=== PATIENT | male | born 1960 | race Two or more races ===

== ENCOUNTER 2018-09-16 19:43 | Observation (INO) | payer BC ==
--- NOTE | 2018-09-16 19:57 | PDOC ---
Rapid Medical Evaluation Time Seen by Provider: 09/16/18 19:54 Medical Evaluation: Allergies Allergy/AdvReac Type Severity Reaction Status Date / Time naproxen sodium [From Aleve] Allergy Intermediate Itching Verified 01/23/15 06: 54 09/16/18 19:54 I have performed a brief in-person evaluation of this patient. The patient presents with a chief complaint of:Sent by PCP Dr Talon Jerez for abnormal EKG, +LOC, polina in scalp, s/p fall yesterday seen and discharged from [facility] Pertinent physical exam findings:NAD I have ordered the following:Cardiac work up The patient will proceed to the ED for further evaluation. Discharge Disposition - Diagnosis Abnormal EKG - Referrals - Patient Instructions - Post Discharge Activity
[2018-09-16 20:00] VITALS: BMI 31.2
[2018-09-16 20:19] LABS: BASO % 0.8 % (0-2.0); EOS % 2.2 % (0-4.5); HEMATOCRIT 42.4 % (35.4-49); HEMOGLOBIN 14.4 GM/dL (11.7-16.9); LYMPH % 38.4 % (8-40); MCH 26.3 pg (25.7-33.7); MCHC 33.9 g/dl (32.0-35.9); MEAN CELL VOLUME 77.7 fl (80-96); MEAN PLT VOLUME 8.7 fl (7.5-11.1); NEUT % 52.6 % (42.8-82.8); PLATELET COUNT 223 K/MM3 (134-434); RBC 5.46 M/mm3 (4.00-5.60); RDW 13.7 % (11.9-15.9); WHITE BLOOD COUNT 11.4 K/mm3 (4.0-10.0)
[2018-09-16 20:32] LABS: INR 1.02 (0.83-1.09)
[2018-09-16 20:54] LABS: ALBUMIN 3.9 g/dl (3.4-5.0); ALK PHOS 77 U/L (45-117); ANION GAP 9 MMOL/L (8-16); BILIRUBIN,TOTAL 0.3 mg/dL (0.2-1); BLOOD UREA NITROGEN 22 mg/dL (7-18); CALCIUM 8.7 mg/dL (8.5-10.1); CHLORIDE 107 mmol/L (98-107); CO2 24 mmol/L (21-32); CREATININE 1.3 mg/dL (0.55-1.3); GLUCOSE,RANDOM 157 mg/dL (74-106); MAGNESIUM 1.7 mg/dL (1.8-2.4); POTASSIUM 4.3 mmol/L (3.5-5.1); SGOT/AST 19 U/L (15-37); SGPT/ALT 37 U/L (13-61); SODIUM 140 mmol/L (136-145); TOT PROT 7.4 g/dl (6.4-8.2)
--- NOTE | 2018-09-16 21:21 | PDOC ---
History of Present Illness <Haley Dunn - Last Filed: 09/16/18 21:51> - General History Source: Patient Exam Limitations: No Limitations - History of Present Illness Initial Comments: 09/16/18 22:33 The patient is a 57 year old male, with a significant PMH of DM, gout, BPH, who was sent to the emergency department by his PCP for an abnormal EKG. The patient states they fell yesterday on ice while at work, LOC, and acquired a lesion to the back of his head. He states he went to [facility] ER after the incident and received polina to the back of his head, labs and a CT. Since then, the patient reports feeling nauseous, an episode of vomiting, dizziness, and that he was not able to sleep last night. Patient went to see his PCP today, where he was then advised to come to the ED. Allergies: Naproxen Social history: None reported PCP: Nhan <Yolanda Perry - Last Filed: 09/16/18 22:34> - General Chief Complaint: Lightheaded Stated Complaint: SENT BY PCP Time Seen by Provider: 09/16/18 19:54 Past History - Past Medical History Anemia: No Asthma: No Cancer: No Cardiac Disorders: No CVA: No COPD: No CHF: No Dementia: No Diabetes: Yes GI Disorders: No Disorders: Yes (BPH) HTN: Yes Hypercholesterolemia: Yes Liver Disease: No Seizures: No Thyroid Disease: No Other medical history: Gout - Surgical History Abdominal Surgery: Yes (HERNIA) Appendectomy: No Cardiac Surgery: No Cholecystectomy: No Lung Surgery: No Neurologic Surgery: No Orthopedic Surgery: No - Suicide/Smoking/Psychosocial Hx Smoking History: Never smoked Have you smoked in the past 12 months: No Information on smoking cessation initiated: No Hx Alcohol Use: No Drug/Substance Use Hx: No Substance Use Type: None <Haley Dunn - Last Filed: 09/16/18 21:51> <Yolanda Perry - Last Filed: 09/16/18 22:34> - Past Medical History Allergies/Adverse Reactions: Allergies Allergy/AdvReac Type Severity Reaction Status Date / Time naproxen sodium [From Aleve] Allergy Intermediate Itching Verified 09/16/18 19: 58 Home Medications: Ambulatory Orders Linagliptin/Metformin HCl [Jentadueto 2.5 mg-500 mg Tab] 1 each PO BID 01/16/15 Simvastatin 10 mg PO HS 01/16/15 Enalapril Maleate [Vasotec -] 5 mg PO DAILY tablet 01/17/15 Tamsulosin HCl [Flomax -] 0.4 mg PO HS cap.er.24h 01/17/15 *Physical Exam - Vital Signs Last Vital Signs Temp Pulse Resp BP Pulse Ox 97.3 F L 75 18 150/80 98 09/16/18 19:58 09/16/18 19:58 09/16/18 19:58 09/16/18 19:58 09/16/18 19:58 <Haley Dunn - Last Filed: 09/16/18 21:51> - Vital Signs Last Vital Signs Temp Pulse Resp BP Pulse Ox 97.3 F L 75 18 150/80 98 09/16/18 19:58 09/16/18 19:58 09/16/18 19:58 09/16/18 19:58 09/16/18 19:58 - Physical Exam Comments: 09/16/18 22:34 GENERAL: Awake, alert, and fully oriented, in no acute distress HEAD: No signs of trauma EYES: PERRLA, EOMI, sclera anicteric, conjunctiva clear ENT: Auricles normal inspection, hearing grossly normal, nares patent, oropharynx clear without exudates. Moist mucosa NECK: Normal ROM, supple, no lymphadenopathy, JVD, or masses LUNGS: Breath sounds equal, clear to auscultation bilaterally. No wheezes, and no crackles HEART: Regular rate and rhythm, normal S1 and S2, no murmurs, rubs or gallops ABDOMEN: Soft, nontender, normoactive bowel sounds. No guarding, no rebound. No masses EXTREMITIES: Normal range of motion, no edema. No clubbing or cyanosis. No cords, erythema, or tenderness NEUROLOGICAL: Cranial nerves II through XII grossly intact. Normal speech, normal gait SKIN: Warm, Dry, normal turgor, no rashes or lesions noted. <Yolanda Perry - Last Filed: 09/16/18 22:34> Moderate Sedation - Procedure Monitoring Vital Signs: Procedure Monitoring Vital Signs Temperature 97.3 F L 09/16/18 19:58 Pulse Rate 75 09/16/18 19:58 Respiratory Rate 18 02/13/19 19:58 Blood Pressure 150/80 09/16/18 19:58 O2 Sat by Pulse Oximetry (%) 98 09/16/18 19:58 <Haley Dunn - Last Filed: 09/16/18 21:51> - Procedure Monitoring Vital Signs: Procedure Monitoring Vital Signs Temperature 97.3 F L 09/16/18 19:58 Pulse Rate 75 09/16/18 19:58 Respiratory Rate 18 09/16/18 19:58 Blood Pressure 150/80 09/16/18 19:58 O2 Sat by Pulse Oximetry (%) 98 09/16/18 19:58 <Yolanda Perry - Last Filed: 09/16/18 22:34> Heart Score/ECG Review - ECG Intrepretation Comment:: 09/16/18 21:27 sinus at 76, L axis, q waves inferior that are age indeterminate, t wave inversions V5-6, unchanged from 2014 ekg <Haley Dunn - Last Filed: 09/16/18 21:51> ED Treatment Course - LABORATORY CBC & Chemistry Diagram: 09/16/18 20:10 09/16/18 20:10 - ADDITIONAL ORDERS Additional order review: Laboratory Results 09/16/18 09/16/18 20:10 20:08 PT with INR 12.00 INR 1.02 Sodium 140 Potassium 4.3 Chloride 107 Carbon Dioxide 24 Anion Gap 9 BUN 22 H Creatinine 1.3 Creat Clearance w eGFR 56.90 Random Glucose 157 H Calcium 8.7 Magnesium 1.7 L Total Bilirubin 0.3 AST 19 ALT 37 Alkaline Phosphatase 77 Creatine Kinase 202 Troponin I < 0.02 Total Protein 7.4 Albumin 3.9 09/16/18 20:10 RBC 5.46 MCV 77.7 L MCHC 33.9 RDW 13.7 MPV 8.7 Neutrophils % 52.6 Lymphocytes % 38.4 Monocytes % 6.0 Eosinophils % 2.2 Basophils % 0.8 <Haley Dunn - Last Filed: 09/16/18 21:51> - LABORATORY CBC & Chemistry Diagram: 09/16/18 20:10 09/16/18 20:10 - ADDITIONAL ORDERS Additional order review: Laboratory Results 09/16/18 09/16/18 20:10 20:08 PT with INR 12.00 INR 1.02 Sodium 140 Potassium 4.3 Chloride 107 Carbon Dioxide 24 Anion Gap 9 BUN 22 H Creatinine 1.3 Creat Clearance w eGFR 56.90 Random Glucose 157 H Calcium 8.7 Magnesium 1.7 L Total Bilirubin 0.3 AST 19 ALT 37 Alkaline Phosphatase 77 Creatine Kinase 202 Creatine Kinase Index 1.0 CK-MB (CK-2) 2.1 Troponin I < 0.02 Total Protein 7.4 Albumin 3.9 09/16/18 20:10 RBC 5.46 MCV 77.7 L MCHC 33.9 RDW 13.7 MPV 8.7 Neutrophils % 52.6 Lymphocytes % 38.4 Monocytes % 6.0 Eosinophils % 2.2 Basophils % 0.8 <Yolanda Perry - Last Filed: 09/16/18 22:34> Medical Decision Making - Medical Decision Making 09/16/18 21:21 a/p: 57yo male with hx of DM and a mechanical fall yesterday/closed head injury- polina yesterday at [facility] -head ct and c spine ct negative from yesterday - pt with reports -lightheaded and abnl ekg per Dr. 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 aldridge <Haley Dunn - Last Filed: 09/16/18 21:51> - Medical Decision Making 09/16/18 21:43 CT head w/o contrast taken at [facility] Read by Dr Barnett Impression: no acute intracranial hemorrhage, estra axial collection or infarct. CT cervical spine w/o contrast taken at [facility] Read by Dr. Hardwick Impression: No fracture or dislocation. Degenerative disc disease. <Yolanda Perry - Last Filed: 09/16/18 22:34> *DC/Admit/Observation/Transfer - Discharge Dispostion Decision to Admit order: Yes - Attestations Physician Attestion: 09/16/18 21:52 I, Dr. Haley Dunn, DO, attest that this document has been prepared under my direction and personally reviewed by me in its entirety. I further attest, that it accurately reflects all work, treatment, procedures and medical decision -making performed by me. <Haley Dunn - Last Filed: 09/16/18 21:51> - Attestations Scribe Attestion: 09/16/18 21:45 Documentation prepared by Yolanda Perry, acting as medical assistant for Haley Dunn DO. <Yolanda Perry - Last Filed: 09/16/18 22:34> Diagnosis at time of Disposition: Abnormal EKG, Lightheaded - Discharge Dispostion Condition at time of disposition: Fair
--- NOTE | 2018-09-17 01:48 | HP ---
CHIEF COMPLAINT: sent from PCP office for abnormal EKG PCP:Dr. Patrick HISTORY OF PRESENT ILLNESS: This is a 57 year old male with history of diabetes mellitus(on med), gout,and BPH who sustained a slip on ice yesterday. He went to [facility] for evaluation. CT scan of head was unremarkable. He required for 4 polina to his head. He went to his PCP today and found to have an abnormal EKG(office EKG unavailable) . He was referred to go to the ER. He denied any active anginal symptoms and reports feeling at his baseline. He denied shortness of breath, orthopnea, dizziness, palpitations, headache or syncopy.He was admitted to observation for further cardiac evaluation. EKG reviewed a normal sinus rhythm, T wave inversions in v5,v6, first troponin is normal. Recent Travel: Yes, [place] in June 2018 PAST MEDICAL HISTORY:diabetes mellitus,gout, BPH PAST SURGICAL HISTORY:denies Social History: Smoking:smoked for 10 years, 1-2 cigarettes a day Alcohol:denies Drugs: denies Family History:denies cardiac family history Allergies naproxen sodium [From Aleve] Allergy (Intermediate, Verified 09/16/18 19:58) Itching HOME MEDICATIONS: Home Medications Medication Instructions Recorded Linagliptin/Metformin HCl 1 each PO BID 01/16/15 [Jentadueto 2.5 mg-500 mg Tab] Simvastatin 10 mg PO HS 01/16/15 Enalapril Maleate [Vasotec -] 5 mg PO DAILY tablet 01/17/15 Tamsulosin HCl [Flomax -] 0.4 mg PO HS cap.er.24h 01/17/15 REVIEW OF SYSTEMS CONSTITUTIONAL: Absent: fever, chills, diaphoresis, generalized weakness, malaise, loss of appetite, weight change HEENT: Absent: rhinorrhea, nasal congestion, throat pain, throat swelling, difficulty swallowing, mouth swelling, ear pain, eye pain, visual changes CARDIOVASCULAR: Absent: chest pain, syncope, palpitations, irregular heart rate, lightheadedness , peripheral edema RESPIRATORY: Absent: cough, shortness of breath, dyspnea with exertion, orthopnea, wheezing, stridor, hemoptysis GASTROINTESTINAL: Absent: abdominal pain, abdominal distension, nausea, vomiting, diarrhea, constipation, melena, hematochezia GENITOURINARY: Absent: dysuria, frequency, urgency, hesitancy, hematuria, flank pain, genital pain MUSCULOSKELETAL: Absent: myalgia, arthralgia, joint swelling, back pain, neck pain SKIN: Absent: rash, itching, pallor HEMATOLOGIC/IMMUNOLOGIC: Absent: easy bleeding, easy bruising, lymphadenopathy, frequent infections ENDOCRINE: Absent: unexplained weight gain, unexplained weight loss, heat intolerance, cold intolerance NEUROLOGIC: Absent: headache, focal weakness or paresthesias, dizziness, unsteady gait, seizure, mental status changes, bladder or bowel incontinence PSYCHIATRIC: Absent: anxiety, depression, suicidal or homicidal ideation, hallucinations. PHYSICAL EXAMINATION Vital Signs - 24 hr 09/16/18 19:58 Temperature 97.3 F L Pulse Rate 75 Respiratory 18 Rate Blood Pressure 150/80 O2 Sat by Pulse 98 Oximetry (%) GENERAL: Awake, alert, and fully oriented, in no acute distress. HEAD: Normal with no signs of trauma. EYES: Pupils equal, round and reactive to light EARS, NOSE, THROAT: Ears normal, nares patent, oropharynx clear without exudates. Moist mucous membranes. NECK: Normal range of motion, supple no JVD LUNGS: Breath sounds equal, clear to auscultation bilaterally. No wheezes, and no crackles. No accessory muscle use HEART: Regular rate and rhythm, normal S1 and S2 without murmur ABDOMEN: Soft, nontender, not distended, normoactive bowel sounds, no guarding, no rebound, no masses. MUSCULOSKELETAL: Normal range of motion at all joints. No bony deformities or tenderness. UPPER EXTREMITIES: 2+ pulses, warm, well-perfused. No cyanosis. No clubbing. No peripheral edema. LOWER EXTREMITIES: 2+ pulses, warm, well-perfused. No calf tenderness. No peripheral edema. NEUROLOGICAL: Cranial nerves II-XII intact. Normal speech. Normal gait. PSYCHIATRIC: Cooperative. Good eye contact. Appropriate mood and affect. SKIN: Warm, dry, normal turgor, no rashes or lesions noted, normal capillary refill. Laboratory Results - last 24 hr 09/16/18 09/16/18 09/16/18 20:08 20:10 20:10 WBC 11.4 H RBC 5.46 Hgb 14.4 Hct 42.4 MCV 77.7 L MCH 26.3 MCHC 33.9 RDW 13.7 Plt Count 223 MPV 8.7 Absolute Neuts (auto) 6.0 Neutrophils % 52.6 Lymphocytes % 38.4 Monocytes % 6.0 Eosinophils % 2.2 Basophils % 0.8 Nucleated RBC % 0 PT with INR 12.00 INR 1.02 Sodium 140 Potassium 4.3 Chloride 107 Carbon Dioxide 24 Anion Gap 9 BUN 22 H Creatinine 1.3 Creat Clearance w eGFR 56.90 Random Glucose 157 H Calcium 8.7 Magnesium 1.7 L Total Bilirubin 0.3 AST 19 ALT 37 Alkaline Phosphatase 77 Creatine Kinase 202 Creatine Kinase Index 1.0 CK-MB (CK-2) 2.1 Troponin I < 0.02 Total Protein 7.4 Albumin 3.9 ASSESSMENT/PLAN: 57 year old male with history of diabetes mellitus(on medications), gout,and BPH who sustained a slip on ice yesterday. He was evaluated at [facility] yesterday. CT scan of head was unremarkable. He required for 4 polina to his head. He went to his PCP today and he was found to have an abnormal EKG. He was referred to go to the ER. R/O OR in setting of abnormal EKG He denies any active anginal symptoms. EKG showing a normal sinus rhythm, T wave inversions in v5,v6, first troponin is normal, appears euvolemic, hemodynamiclly stable. Will add baby aspirin, continue statin therapy and adamaris inhibitor. Cardiology consulted- Dr. Amaya. PCP consulted- Dr. Patrick. Diabetes Mellitus Accucheks before meals and at bedtime. Continue metformin. Leukocytosis Patient is afebrile, denies cough or chills, Will check UA. Repeat CBC in am. BPH Continue tamulosin. Visit type - Emergency Visit Emergency Visit: Yes ED Registration Date: 09/16/18 Care time: The patient presented to the Emergency Department on the above date and was hospitalized for further evaluation of their emergent condition. - New Patient This patient is new to me today: Yes Date on this admission: 09/17/18 - Critical Care Critical Care patient: No
[2018-09-17] MEDS ORDERED: sitaGLIPtin PHOSPHATE 50 MG TABLET ONE (06:32)
[2018-09-17] MEDS ORDERED: metFORMIN HCL 500 MG TABLET (FP) ONE (06:32)
[2018-09-17] MEDS: sitaGLIPtin PHOSPHATE 100 MG TABLET (FP) PO SCH (06:48)
[2018-09-17] MEDS ORDERED: metFORMIN HCL 500 MG TABLET (FP) PO SCH (07:00)
[2018-09-17 08:35] LABS: ANION GAP 6 MMOL/L (8-16); BLOOD UREA NITROGEN 24 mg/dL (7-18); CALCIUM 8.6 mg/dL (8.5-10.1); CHLORIDE 107 mmol/L (98-107); CO2 26 mmol/L (21-32); GLUCOSE,RANDOM 121 mg/dL (74-106); POTASSIUM 4.3 mmol/L (3.5-5.1); SODIUM 139 mmol/L (136-145)
[2018-09-17 08:39] LABS: HEMATOCRIT 41.7 % (35.4-49); HEMOGLOBIN 13.8 GM/dL (11.7-16.9); MCH 25.8 pg (25.7-33.7); MEAN CELL VOLUME 78.1 fl (80-96); MEAN PLT VOLUME 8.8 fl (7.5-11.1); PLATELET COUNT 204 K/MM3 (134-434); RBC 5.34 M/mm3 (4.00-5.60); RDW 13.9 % (11.9-15.9); WHITE BLOOD COUNT 11.5 K/mm3 (4.0-10.0)
[2018-09-17] MEDS: ENALAPRIL MALEATE 5 MG TABLET (FP) PO SCH (09:06)
[2018-09-17] MEDS: ASPIRIN 81 MG CHEWABLE TABLETS PO SCH (09:06)
[2018-09-17] MEDS: MAGNESIUM CL 64 MG TABLET.SA PO SCH (09:06)
[2018-09-17] MEDS ORDERED: PATIENT'S OWN MEDICATION (NON-FORMULARY) (Linagliptin/Metformin Hcl [Jentadueto 2.5 Mg-500 PO SCH (10:00)
[2018-09-17 11:36] LABS: MAGNESIUM 1.9 mg/dL (1.8-2.4)
--- NOTE | 2018-09-17 12:29 | PN ---
Progress Note, Physician Chief Complaint: s/p fall on ice three polina back of head complaining of dizziness - Current Medication List Current Medications: Active Medications Aspirin (Asa -) 81 mg PO DAILY [facility] Last Admin: 09/17/18 09:06 Dose: 81 mg Atorvastatin Calcium (Lipitor -) 10 mg PO [facility] Enalapril Maleate (Vasotec -) 5 mg PO DAILY [facility] Last Admin: 09/17/18 09:06 Dose: 5 mg Insulin Aspart (Novolog Vial Sliding Scale -) 1 vial SQ [facility]; Protocol Magnesium Chloride (Slow-Mag -) 64 mg PO DAILY [facility] Last Admin: 09/17/18 09:06 Dose: 64 mg Sitagliptin Phosphate (Januvia -) 100 mg PO DAILY@0700 [facility] Last Admin: 09/17/18 06:48 Dose: 100 mg Tamsulosin HCl (Flomax -) 0.4 mg PO [facility] - Objective Vital Signs: Vital Signs Temperature 98.7 F 09/17/18 08:00 Pulse Rate 69 09/17/18 08:00 Respiratory Rate 18 09/17/18 08:00 Blood Pressure 128/73 09/17/18 08:00 O2 Sat by Pulse Oximetry (%) 98 09/17/18 07:48 Constitutional: Yes: Calm HENT: Yes: Other (polina back of head) Cardiovascular: Yes: Regular Rate and Rhythm, S1, S2 Respiratory: Yes: CTA Bilaterally Gastrointestinal: Yes: Normal Bowel Sounds, Soft Edema: No Neurological: Yes: Alert, Oriented Labs: CBC, BMP 09/17/18 07:15 09/17/18 07:15 INR, PTT INR 1.02 (0.83-1.09) 09/16/18 20:08 Problem List - Problems (1) Abnormal EKG Assessment/Plan: telemetry cardiology echo lipid profile on statin aspirin statin Cardiac enzymes 3 sets negative Code(s): R94.31 - ABNORMAL ELECTROCARDIOGRAM [ECG] [EKG] (2) Fall Assessment/Plan: neurolgoy ct head Code(s): W19.XXXA - UNSPECIFIED FALL, INITIAL ENCOUNTER (3) Diabetes Assessment/Plan: bgn sliding scale [id number] januvia 10mg Code(s): E11.9 - TYPE 2 DIABETES MELLITUS WITHOUT COMPLICATIONS Qualifiers: Diabetes mellitus type: type 2
[2018-09-17] MEDS ORDERED: MECLIZINE HCL 12.5 MG TABLET PO PRN (12:33)
--- NOTE | 2018-09-17 14:55 | ECHO ---
Name: SERA ELDER Exam:Adult Echocardiogram Study Date: 09/17/2018 01:07 PM Age: 57 yrs Reason For Study: EJECTION FRACTION MMode/2D Measurements & Calculations IVSd: 0.91 cm Ao root diam: 3.5 cm LVIDd: 4.7 cm LA dimension: 3.4 cm LVIDs: 2.9 cm ACS: 1.6 cm LVPWd: 0.90 cm IVSs: 1.2 cm LVPWs: 1.2 cm EDV(Teich): 104.0 ml ESV(Teich): 31.7 ml Doppler Measurements & Calculations MV E max cristóbal: 47.9 cm/sec Ao V2 max: 109.6 cm/sec MV A max cristóbal: 72.1 cm/sec Ao max P.8 mmHg MV E/A: 0.66 TR max cristóbal: 180.2 cm/sec PA V2 max: 141.2 cm/sec TR max P.5 mmHg PA max P.0 mmHg PA V2 mean: 94.5 cm/sec PA mean P.1 mmHg PA V2 VTI: 23.3 cm Med Peak E' Cristóbal: 5.4 cm/sec Med E/e': 8.9 Lat Peak E' Cristóbal: 8.1 cm/sec Lat E/e': 5.9 Procedure A complete two-dimensional transthoracic echocardiogram was performed (2D, M-mode, Doppler and color flow Doppler). The study was technically difficult with many images being suboptimal in quality. Left Ventricle The left ventricular size, thickness and function are normal. The left ventricular ejection fraction is normal. Ejection Fraction = 60-65%. No regional wall motion abnormalities noted. Right Ventricle The right ventricle is normal in size and function. Atria Normal left and right atrial size and function. Mitral Valve There is no mitral regurgitation noted. Tricuspid Valve There is trace tricuspid regurgitation. There was insufficient TR detected to calculate RV systolic p ressure. Aortic Valve The aortic valve is trileaflet. No hemodynamically significant valvular aortic stenosis. No aortic regurgitation is present. Pulmonic Valve The pulmonic valve is not well visualized. Great Vessels The aortic root is normal size. Pericardium/Pleura There is no pericardial effusion. Interpretation Summary The study was technically difficult with many images being suboptimal in quality. The left ventricular size, thickness and function are normal The right ventricle is normal in size and function. There is trace tricuspid regurgitation. MD Joey Lopes 09/17/2018 02:54 PM
--- NOTE | 2018-09-17 15:33 | EKG ---
Test Reason : Blood Pressure : / mmHG Vent. Rate : 090 BPM Atrial Rate : 090 BPM P-R Int : 180 ms QRS Dur : 100 ms QT Int : 354 ms P-R-T Axes : 055 -57 170 degrees QTc Int : 433 ms SINUS RHYTHM WITH FREQUENT PREMATURE VENTRICULAR COMPLEXES IN A PATTERN OF BIGEMINY LEFT AXIS DEVIATION INFERIOR INFARCT , AGE UNDETERMINED ABNORMAL ECG WHEN COMPARED WITH ECG OF 16-JAN-2015 12:22, INFERIOR INFARCT IS NOW PRESENT T WAVE INVERSION NOW EVIDENT IN ANTERIOR LEADS Confirmed by PHUONG CHAVES MD ([id number]) on 09/17/2018 3:32:23 PM Referred By: LORAINE DANIELLE Confirmed By:PHUONG CHAVES MD
--- NOTE | 2018-09-17 15:41 | EKG ---
Test Reason : Blood Pressure : / mmHG Vent. Rate : 076 BPM Atrial Rate : 076 BPM P-R Int : 192 ms QRS Dur : 098 ms QT Int : 374 ms P-R-T Axes : 053 -51 078 degrees QTc Int : 420 ms NORMAL SINUS RHYTHM LEFT AXIS DEVIATION INFERIOR INFARCT , AGE UNDETERMINED ABNORMAL ECG WHEN COMPARED WITH ECG OF 16-JAN-2015 12:22, PREMATURE VENTRICULAR COMPLEXES ARE NO LONGER PRESENT INFERIOR INFARCT IS NOW PRESENT Confirmed by ANDIE CARNES, PHUONG ([id number]) on 09/17/2018 3:41:14 PM Referred By: Confirmed By:PHUONG CHAVES MD
--- NOTE | 2018-09-17 16:09 | CON.CARD ---
Consult Consult Specialty:: Cardiology Reason for Consultation:: Abnormal ECG - History of Present Illness History of Present Illness: 57 year old male with history of diabetes mellitus, gout,and BPH who sustained a slip on ice. He went to [facility] for evaluation. CT scan of head was unremarkable. He required for 4 polina to his head. He went to his PCP and had dizziness. There may have been an abnormal ECG but results are not available. He was referred to go to the ER. He denied any active anginal symptoms and reports feeling at his baseline. He denied shortness of breath, orthopnea, dizziness, palpitations, headache or syncopy.He was admitted to observation for further cardiac evaluation. ER EKG reviewed showed ventricular bigemeny with nonspecific T wave changes Echocardiogram showed normal biventricular function without valvular pathology. - History Source Limitations to Obtaining History: No Limitations - Alcohol/Substance Use Hx Alcohol Use: No - Smoking History Smoking history: Never smoked Have you smoked in the past 12 months: No Home Medications - Allergies Allergies/Adverse Reactions: Allergies Allergy/AdvReac Type Severity Reaction Status Date / Time naproxen sodium [From Aleve] Allergy Intermediate Itching Verified 09/16/18 19: 58 - Home Medications Home Medications: Ambulatory Orders Linagliptin/Metformin HCl [Jentadueto 2.5 mg-500 mg Tab] 1 each PO BID 01/16/15 Simvastatin 10 mg PO HS 01/16/15 Enalapril Maleate [Vasotec -] 5 mg PO DAILY tablet 01/17/15 Tamsulosin HCl [Flomax -] 0.4 mg PO HS cap.er.24h 01/17/15 Review of Systems - Review of Systems Constitutional: reports: No Symptoms. denies: Chills, Diaphoresis, Fever, Lethargy Eyes: reports: No Symptoms HENT: reports: No Symptoms. denies: Difficult Swallowing Neck: reports: No Symptoms Cardiovascular: denies: Chest Pain, Edema, Palpitations, Shortness of Breath Respiratory: reports: No Symptoms Musculoskeletal: denies: Back Pain, Joint Swelling, Muscle Pain Neurological: denies: Change in Speech, Confusion, Dizziness, Incoordination Vital Signs: Vital Signs Temperature 98.7 F 09/17/18 08:00 Pulse Rate 69 09/17/18 08:00 Respiratory Rate 18 09/17/18 08:00 Blood Pressure 128/73 09/17/18 08:00 O2 Sat by Pulse Oximetry (%) 98 09/17/18 07:48 Constitutional: Yes: Well Nourished, No Distress Eyes: Yes: Conjunctiva Clear HENT: Yes: Atraumatic, Normocephalic Neck: Yes: Supple, Trachea Midline Respiratory: Yes: Regular, CTA Bilaterally Gastrointestinal: Yes: Normal Bowel Sounds Cardiovascular: Yes: Regular Rate and Rhythm. No: Tachycardia, Pulse Irregular , Gallop, Rub JVD: No Carotid Bruit: No PMI: Non-Displaced Heart Sounds: Yes: S1, S2 Murmur: No: Systolic Murmur, Diastolic Murmur Extremities: Yes: WNL Edema: No - Other Data Labs, Other Data: CBC, BMP 09/17/18 07:15 09/17/18 07:15 INR, PTT INR 1.02 (0.83-1.09) 09/16/18 20:08 Troponin, BNP 09/16/18 09/17/18 09/17/18 20:10 01:50 07:15 Troponin I < 0.02 < 0.02 < 0.02 Troponin, BNP 09/16/18 09/17/18 09/17/18 20:10 01:50 07:15 Troponin I < 0.02 < 0.02 < 0.[address] changes. Nonspecific T wave changes. Problem List - Problems (1) Abnormal EKG Code(s): R94.31 - ABNORMAL ELECTROCARDIOGRAM [ECG] [EKG] Assessment/Plan 57 year old male with history of diabetes mellitus, gout,and BPH who sustained a slip on ice. He went to [facility] for evaluation. CT scan of head was unremarkable. He required for 4 polina to his head. He went to his PCP and had dizziness. There may have been an abnormal ECG but results are not available. He was referred to go to the ER. He denied any active anginal symptoms and reports feeling at his baseline. He denied shortness of breath, orthopnea, dizziness, palpitations, headache or syncopy.He was admitted to observation for further cardiac evaluation. ER EKG reviewed showed ventricular bigemeny with nonspecific T wave changes Echocardiogram showed normal biventricular function without valvular pathology. Nonspecific T wave changes are not ischemic. PT has no symptoms of angina or heart failure. Echocardiogram is normal. Has ventricular bigeminy with normal LV function. No further inpatient testing is advised at this time. Will see as needed.
[2018-09-17] MEDS: INSULIN SLIDING SCALE (NOVOLOG) 1 VIAL SQ SCH ×2 (16:33→22:36)
[2018-09-17 16:40] LABS: URINE APPEARANCE CLEAR; URINE BILIRUBIN NEGATIVE (<2.0 mg/dL); URINE COLOR LTYELLOW; URINE GLUCOSE (UA) NEGATIVE (NEGATIVE); URINE KETONE NEGATIVE (NEGATIVE); URINE LEUK ESTERASE NEGATIVE (NEGATIVE); URINE NITRITE NEGATIVE (NEGATIVE); URINE PROTEIN NEGATIVE (NEGATIVE); URINE UROBILINOGEN NEGATIVE mg/dL (0.2-1.0)
[2018-09-17 16:56] LABS: EPI CELLS RARE /HPF (FEW); URINE MUCUS RARE
[2018-09-17] MEDS ORDERED: ATORVASTATIN CA 10 MG TABLET (FP) PO SCH (22:00)
[2018-09-17] MEDS: TAMSULOSIN HCL 0.4 MG CAP PO SCH (22:36)
[2018-09-18] MEDS ORDERED: ACETAMINOPHEN 325 MG TABLET (FP) ONE (05:49)
[2018-09-18] MEDS: ACETAMINOPHEN 325 MG TABLET (FP) PO PRN (05:54)
[2018-09-18] MEDS: INSULIN SLIDING SCALE (NOVOLOG) 1 VIAL SQ SCH ×4 (06:07→21:21)
[2018-09-18] MEDS: sitaGLIPtin PHOSPHATE 100 MG TABLET (FP) PO SCH (06:08)
[2018-09-18 07:34] LABS: BASO % 0.6 % (0-2.0); EOS % 1.9 % (0-4.5); HEMATOCRIT 41.7 % (35.4-49); HEMOGLOBIN 13.9 GM/dL (11.7-16.9); LYMPH % 32.5 % (8-40); MCHC 33.3 g/dl (32.0-35.9); MEAN CELL VOLUME 78.1 fl (80-96); MEAN PLT VOLUME 8.8 fl (7.5-11.1); PLATELET COUNT 196 K/MM3 (134-434); RBC 5.34 M/mm3 (4.00-5.60); RDW 14.2 % (11.9-15.9); WHITE BLOOD COUNT 10.2 K/mm3 (4.0-10.0)
[2018-09-18 08:07] LABS: ALBUMIN 3.4 g/dl (3.4-5.0); ALK PHOS 74 U/L (45-117); ANION GAP 4 MMOL/L (8-16); BILIRUBIN,TOTAL 0.4 mg/dL (0.2-1); BLOOD UREA NITROGEN 22 mg/dL (7-18); CALCIUM 8.7 mg/dL (8.5-10.1); CHLORIDE 107 mmol/L (98-107); CHOLESTEROL 170 mg/dL (50-200); CO2 27 mmol/L (21-32); GLUCOSE,RANDOM 134 mg/dL (74-106); HDL CHOLESTEROL 37 mg/dL (40-60); POTASSIUM 4.7 mmol/L (3.5-5.1); SGOT/AST 18 U/L (15-37); SGPT/ALT 35 U/L (13-61); SODIUM 138 mmol/L (136-145); TOT PROT 6.8 g/dl (6.4-8.2); TRIGLYCERIDES 150 mg/dL (0-150)
[2018-09-18] MEDS ORDERED: PT OWN MED DRAWER 7, Y5N ONE (09:16)
[2018-09-18] MEDS: ENALAPRIL MALEATE 5 MG TABLET (FP) PO SCH (09:36)
[2018-09-18] MEDS: ASPIRIN 81 MG CHEWABLE TABLETS PO SCH (09:36)
[2018-09-18] MEDS: MAGNESIUM CL 64 MG TABLET.SA PO SCH (09:36)
--- NOTE | 2018-09-18 10:02 | CONSULT ---
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 Events reviewed and discussed with staff. Cardiology Consult read and appreciated. PMHX: HTN, DM, HLD, BPH Medications: linagliptin/metformin, simvastatin, enalapril, tamsulosin Allergy to Naproxen. Pt notes rare headaches since childhood. He reports "slipping on ice" falling backwards on head outside the property without prodromal symptoms and LOC for approximately [address]. Unclear but LOC may have recurred in the [facility] ED where he had CT of head, was observed, and D/C'ed to his family. Since then he has had a "shaking" headache in the back of his head with associated photophobia, phonophobia, nausea, vomiting and kinesiophobia. He also notes the "room spinning" with dizziness induced by mov't. He reports the symptoms have since been ongoing, and he saw his PCP, who recommended return to the hospital. He also reports intermittent new neck and back pain, along with "tingling" pains in both hands and the R leg interupting sleep. Head CT (reviewed): mild atrophic changes A1c 7.2 Ck 202 WBC 11.2 MCV 77.7 ECHO: normal EKG: ventricular bigeminy HOPE: restricted ROM of neck, Staple line over R occipital region, (+/-) Tinel's B/L hands, (-) mehta sign's (-) infraorbital ecchymoses (-) bruits, (-) SLR, NEURO EXAM: Mentation: Oriented to name. [facility]. September 2018. TRUMP CN II-XII: EOMI intact without nystagmus. Motor: No drift. Strength normal including APBs B/L. Reflexes normal. Toes downgoing. Coordination: No FTN dystaxia. Romberg - Sensation: Reduced vibration in feet. Gait: Normal including heels, toes and tandem. Impression: Head Injury with LOC Concussion Plan: Advise bed rest, IVF hydration Obtain B12, TSH, Fe++, Iron, TIBC, Ferritin Advise CT of Neck (C-), Lumbar Xray Neuro F/U as outpatient for further management of concussion and study for possible diabetic neuropathy Thank you very much. Lakhwinder Eden MD
--- NOTE | 2018-09-18 13:16 | PN ---
Progress Note, Physician Chief Complaint: patient complaining of headache at site where he fell has ice pack on went for ct of neck and lumbar xray lipid profile noted - Current Medication List Current Medications: Active Medications Acetaminophen (Tylenol -) 650 mg PO Q6H PRN PRN Reason: PAIN LEVEL 1-5 Last Admin: 09/18/18 05:54 Dose: 650 mg Aspirin (Asa -) 81 mg PO DAILY [facility] Last Admin: 09/18/18 09:36 Dose: 81 mg Enalapril Maleate (Vasotec -) 5 mg PO DAILY [facility] Last Admin: 09/18/18 09:36 Dose: 5 mg Insulin Aspart (Novolog Vial Sliding Scale -) 1 vial SQ ACHS [facility]; Protocol Last Admin: 09/18/18 12:30 Dose: Not Given Magnesium Chloride (Slow-Mag -) 64 mg PO DAILY [facility] Last Admin: 09/18/18 09:36 Dose: 64 mg Meclizine HCl (Antivert -) 12.5 mg PO BID PRN PRN Reason: VERTIGO Sitagliptin Phosphate (Januvia -) 100 mg PO DAILY@0700 [facility] Last Admin: 09/18/18 06:08 Dose: 100 mg Tamsulosin HCl (Flomax -) 0.4 mg PO HS [facility] Last Admin: 09/17/18 22:36 Dose: 0.4 mg - Objective Vital Signs: Vital Signs Temperature 98 F 09/18/18 10:00 Pulse Rate 82 09/18/18 10:00 Respiratory Rate 18 09/18/18 10:00 Blood Pressure 125/64 09/18/18 10:00 O2 Sat by Pulse Oximetry (%) 96 09/18/18 07:00 Constitutional: Yes: Calm HENT: Yes: Other (head polina) Cardiovascular: Yes: Regular Rate and Rhythm, S1, S2 Respiratory: Yes: CTA Bilaterally Gastrointestinal: Yes: Normal Bowel Sounds, Soft Edema: No Labs: CBC, BMP 09/18/18 05:45 09/18/18 05:45 INR, PTT INR 1.02 (0.83-1.09) 09/16/18 20:08 Problem List - Problems (1) Abnormal EKG Assessment/Plan: telemetry cardiology echo done right and left ventricle normal in size lipid profile on statin dose increase to 20mg given LDL goal < 100 with h/o DM aspirin statin Cardiac enzymes 3 sets negative Code(s): R94.31 - ABNORMAL ELECTROCARDIOGRAM [ECG] [EKG] (2) Fall Assessment/Plan: neurolgoy saw patient iron panel aordered b12 ct scan of neck and lumbar spine xray ordered ct head surgical polina Code(s): W19.XXXA - UNSPECIFIED FALL, INITIAL ENCOUNTER (3) Diabetes Assessment/Plan: bgn sliding scale hgba1c 7.2 januvia 100 metformin 500mg bid Code(s): E11.9 - TYPE 2 DIABETES MELLITUS WITHOUT COMPLICATIONS Qualifiers: Diabetes mellitus type: type 2 Assessment/Plan if lumbar spine xray nad ct neck normal johnson dc home today
[2018-09-18] MEDS: metFORMIN HCL 500 MG TABLET (FP) PO SCH (16:47)
--- NOTE | 2018-09-18 18:26 | CONSULT ---
Consult Consult Specialty:: endcocrine Referred by:: dr.saba canales Reason for Consultation:: diabetes mellitus - History of Present Illness Chief Complaint: fell down hit his head History of Present Illness: 57 year old male with history of diabetes mellitus(on med), gout,and BPH who sustained a slip on ice yesterday. He went to [facility] for evaluation. CT scan of head was unremarkable. He required for 4 polina to his head. He has difficulty with pain and difficulty walking, he feels pain limiting his walking and sitting,he has had difficulty controlling blood sugars with episode of high more than usual. he denies nausea vomiting fever or chills. - Alcohol/Substance Use Hx Alcohol Use: No - Smoking History Smoking history: Never smoked Have you smoked in the past 12 months: No Home Medications - Allergies Allergies/Adverse Reactions: Allergies Allergy/AdvReac Type Severity Reaction Status Date / Time naproxen sodium [From Aleve] Allergy Intermediate Itching Verified 09/16/18 19: 58 - Home Medications Home Medications: Ambulatory Orders Linagliptin/Metformin HCl [Jentadueto 2.5 mg-500 mg Tab] 1 each PO BID 01/16/15 Simvastatin 10 mg PO HS 01/16/15 Enalapril Maleate [Vasotec -] 5 mg PO DAILY tablet 01/17/15 Tamsulosin HCl [Flomax -] 0.4 mg PO HS cap.er.24h 01/17/15 Review of Systems - Review of Systems Constitutional: reports: Lethargy Eyes: reports: Blurred Vision HENT: reports: No Symptoms Neck: reports: No Symptoms Cardiovascular: reports: No Symptoms Gastrointestinal: reports: No Symptoms Genitourinary: reports: No Symptoms Breasts: reports: No Symptoms Reported Musculoskeletal: reports: Joint Pain, Muscle Pain Integumentary: reports: No Symptoms Endocrine: reports: No Symptoms Physical Exam Vital Signs: Vital Signs Temperature 97.7 F 09/18/18 17:50 Pulse Rate 71 09/18/18 17:50 Respiratory Rate 20 09/18/18 17:50 Blood Pressure 120/74 09/18/18 17:50 O2 Sat by Pulse Oximetry (%) 96 09/18/18 07:00 Constitutional: Yes: Calm Eyes: Yes: EOM Intact HENT: Yes: Normocephalic Neck: Yes: Trachea Midline Cardiovascular: Yes: Regular Rate and Rhythm Respiratory: Yes: CTA Bilaterally Gastrointestinal: Yes: Normal Bowel Sounds ...Rectal Exam: Yes: Deferred Renal/: Yes: WNL Breast(s): Yes: WNL Musculoskeletal: Yes: WNL Extremities: Yes: WNL Edema: No Integumentary: Yes: WNL Psychiatric: Yes: Alert, Oriented Labs: CBC, BMP 09/18/18 05:45 09/18/18 05:45 Problem List - Problems (1) Abnormal EKG Code(s): R94.31 - ABNORMAL ELECTROCARDIOGRAM [ECG] [EKG] (2) Diabetes Code(s): E11.9 - TYPE 2 DIABETES MELLITUS WITHOUT COMPLICATIONS Qualifiers: Diabetes mellitus type: type 2 (3) Lightheaded Code(s): R42 - DIZZINESS AND GIDDINESS (4) Fall Code(s): W19.XXXA - UNSPECIFIED FALL, INITIAL ENCOUNTER (5) Knee pain Code(s): M25.569 - PAIN IN UNSPECIFIED KNEE Assessment/Plan Current Active Problems Abnormal EKG (Acute) Diabetes (Acute) Lightheaded (Acute) Abnormal Lab Results 09/18/18 09/18/18 09/18/18 05:45 05:45 05:45 WBC 10.2 H MCV 78.1 L Anion Gap 4 L BUN 22 H Random Glucose 134 H Hemoglobin A1c % 7.2 H Total LDL Cholesterol 114 H HDL Cholesterol 37 L Laboratory Results - last 24 hr 09/17/18 09/18/18 09/18/18 22:34 05:37 05:45 WBC RBC Hgb Hct MCV MCH MCHC RDW Plt Count MPV Absolute Neuts (auto) Neutrophils % Lymphocytes % Monocytes % Eosinophils % Basophils % Nucleated RBC % Sodium 138 Potassium 4.7 Chloride 107 Carbon Dioxide 27 Anion Gap 4 L BUN 22 H Creatinine 1.0 Creat Clearance w eGFR > 60 POC Glucometer 130 139 Random Glucose 134 H Hemoglobin A1c % Calcium 8.7 Total Bilirubin 0.4 AST 18 ALT 35 Alkaline Phosphatase 74 Total Protein 6.8 Albumin 3.4 Triglycerides 150 Cholesterol 170 Total LDL Cholesterol 114 H HDL Cholesterol 37 L 09/18/18 09/18/18 09/18/18 05:45 05:45 12:17 WBC 10.2 H RBC 5.34 Hgb 13.9 Hct 41.7 MCV 78.1 L MCH 26.0 MCHC 33.3 RDW 14.2 Plt Count 196 MPV 8.8 Absolute Neuts (auto) 6.0 Neutrophils % 59.0 Lymphocytes % 32.5 Monocytes % 6.0 Eosinophils % 1.9 Basophils % 0.6 Nucleated RBC % 0 Sodium Potassium Chloride Carbon Dioxide Anion Gap BUN Creatinine Creat Clearance w eGFR POC Glucometer 97 Random Glucose Hemoglobin A1c % 7.2 H Calcium Total Bilirubin AST ALT Alkaline Phosphatase Total Protein Albumin Triglycerides Cholesterol Total LDL Cholesterol HDL Cholesterol 09/18/18 16:43 WBC RBC Hgb Hct MCV MCH MCHC RDW Plt Count MPV Absolute Neuts (auto) Neutrophils % Lymphocytes % Monocytes % Eosinophils % Basophils % Nucleated RBC % Sodium Potassium Chloride Carbon Dioxide Anion Gap BUN Creatinine Creat Clearance w eGFR POC Glucometer 109 Random Glucose farooq Hemoglobin A1c % Calcium Total Bilirubin AST ALT Alkaline Phosphatase Total Protein Albumin Triglycerides Cholesterol Total LDL Cholesterol HDL Cholesterol plan: bgm qid novolog insulin metformin 500mg bid
[2018-09-18] MEDS: TAMSULOSIN HCL 0.4 MG CAP PO SCH (21:23)
[2018-09-18] MEDS: ATORVASTATIN CA 20 MG TABLET (FP) PO SCH (21:23)
[2018-09-19 04:15] LABS: SERUM IRON SATURATION 30 % (15-55); TOTAL IRON BINDING CAPACITY 299 ug/dL (250-450); UIBC 210 ug/dL (111-343)
[2018-09-19] MEDS: sitaGLIPtin PHOSPHATE 100 MG TABLET (FP) PO SCH (06:14)
[2018-09-19] MEDS: INSULIN SLIDING SCALE (NOVOLOG) 1 VIAL SQ SCH ×4 (06:14→21:01)
[2018-09-19] MEDS: metFORMIN HCL 500 MG TABLET (FP) PO SCH ×2 (06:14→16:21)
[2018-09-19] MEDS: MAGNESIUM CL 64 MG TABLET.SA PO SCH (09:17)
[2018-09-19] MEDS: ENALAPRIL MALEATE 5 MG TABLET (FP) PO SCH (09:17)
[2018-09-19] MEDS: ASPIRIN 81 MG CHEWABLE TABLETS PO SCH (09:17)
[2018-09-19] MEDS: ACETAMINOPHEN 325 MG TABLET (FP) PO PRN (09:17)
--- NOTE | 2018-09-19 15:43 | PN ---
Progress Note, Physician Chief Complaint: Abnormal EKG History of Present Illness: Previous notes and events reviewed awake and alert NAD complain of lower back pain - Current Medication List Current Medications: Active Medications Acetaminophen (Tylenol -) 650 mg PO Q6H PRN PRN Reason: PAIN LEVEL 1-5 Last Admin: 09/19/18 09:17 Dose: 650 mg Aspirin (Asa -) 81 mg PO DAILY [facility] Last Admin: 09/19/18 09:17 Dose: 81 mg Atorvastatin Calcium (Lipitor -) 20 mg PO [facility] Last Admin: 09/18/18 21:23 Dose: 20 mg Enalapril Maleate (Vasotec -) 5 mg PO DAILY [facility] Last Admin: 09/19/18 09:17 Dose: 5 mg Insulin Aspart (Novolog Vial Sliding Scale -) 1 vial SQ [facility]; Protocol Last Admin: 09/19/18 10:52 Dose: Not Given Magnesium Chloride (Slow-Mag -) 64 mg PO DAILY [facility] Last Admin: 09/19/18 09:17 Dose: 64 mg Meclizine HCl (Antivert -) 12.5 mg PO BID PRN PRN Reason: VERTIGO Metformin HCl (Glucophage -) 500 mg PO BID@0700,1630 [facility] Last Admin: 09/19/18 06:14 Dose: 500 mg Sitagliptin Phosphate (Januvia -) 100 mg PO DAILY@0700 [facility] Last Admin: 09/19/18 06:14 Dose: 100 mg Tamsulosin HCl (Flomax -) 0.4 mg PO [facility] Last Admin: 09/18/18 21:23 Dose: 0.4 mg - Objective Vital Signs: Vital Signs Temperature 98.2 F 09/19/18 14:10 Pulse Rate 70 09/19/18 14:10 Respiratory Rate 18 09/19/18 14:10 Blood Pressure 115/57 L 09/19/18 14:10 O2 Sat by Pulse Oximetry (%) 96 09/19/18 07:50 Constitutional: Yes: No Distress, Calm Eyes: Yes: Conjunctiva Clear HENT: Yes: Other (polina noted to scalp laceration) Cardiovascular: Yes: Regular Rate and Rhythm Respiratory: Yes: Regular, CTA Bilaterally Gastrointestinal: Yes: Normal Bowel Sounds, Soft Musculoskeletal: Yes: Back Pain Extremities: Yes: WNL Edema: No Wound/Incision: Yes: [place] Intact, Open to air Neurological: Yes: Alert, Oriented Psychiatric: Yes: Alert, Oriented Labs: CBC, BMP 09/18/18 05:45 09/18/18 05:45 INR, PTT INR 1.02 (0.83-1.09) 09/16/18 20:08 Problem List - Problems (1) Lumbar pain Assessment/Plan: -pending lumbar xray results -tylenol prn for pain Code(s): M54.5 - LOW BACK PAIN (2) Abnormal EKG Assessment/Plan: -cardiology on board -tele monitoring Code(s): R94.31 - ABNORMAL ELECTROCARDIOGRAM [ECG] [EKG] (3) Diabetes Assessment/Plan: -BGM ACHS -continue with sitalgliptin, ISS -diabetic diet Code(s): E11.9 - TYPE 2 DIABETES MELLITUS WITHOUT COMPLICATIONS Qualifiers: Diabetes mellitus type: type 2 (4) Fall Assessment/Plan: -fall precaution Code(s): W19.XXXA - UNSPECIFIED FALL, INITIAL ENCOUNTER Assessment/Plan see problem list
[2018-09-19] MEDS: TAMSULOSIN HCL 0.4 MG CAP PO SCH (21:01)
[2018-09-19] MEDS: ATORVASTATIN CA 20 MG TABLET (FP) PO SCH (21:01)
[2018-09-20] MEDS: ACETAMINOPHEN 325 MG TABLET (FP) PO PRN ×2 (02:08→21:23)
[2018-09-20] MEDS: sitaGLIPtin PHOSPHATE 100 MG TABLET (FP) PO SCH (06:31)
[2018-09-20] MEDS: INSULIN SLIDING SCALE (NOVOLOG) 1 VIAL SQ SCH ×4 (06:33→21:23)
[2018-09-20] MEDS: metFORMIN HCL 500 MG TABLET (FP) PO SCH ×2 (06:33→16:53)
[2018-09-20 07:20] LABS: HEMATOCRIT 43.2 % (35.4-49); HEMOGLOBIN 14.6 GM/dL (11.7-16.9); MCH 26.3 pg (25.7-33.7); MCHC 33.8 g/dl (32.0-35.9); MEAN PLT VOLUME 9.1 fl (7.5-11.1); PLATELET COUNT 189 K/MM3 (134-434); RBC 5.54 M/mm3 (4.00-5.60); RDW 13.6 % (11.9-15.9); WHITE BLOOD COUNT 11.5 K/mm3 (4.0-10.0)
[2018-09-20 07:51] LABS: ALBUMIN 3.5 g/dl (3.4-5.0); ALK PHOS 76 U/L (45-117); ANION GAP 8 MMOL/L (8-16); BILIRUBIN,TOTAL 0.4 mg/dL (0.2-1); BLOOD UREA NITROGEN 23 mg/dL (7-18); CALCIUM 8.2 mg/dL (8.5-10.1); CHLORIDE 104 mmol/L (98-107); CO2 25 mmol/L (21-32); GLUCOSE,RANDOM 118 mg/dL (74-106); POTASSIUM 4.4 mmol/L (3.5-5.1); SGOT/AST 17 U/L (15-37); SGPT/ALT 43 U/L (13-61); SODIUM 136 mmol/L (136-145); TOT PROT 7.2 g/dl (6.4-8.2)
[2018-09-20] MEDS ORDERED: PT OWN MED DRAWER 7, Y5N ONE (08:45)
[2018-09-20] MEDS: ENALAPRIL MALEATE 5 MG TABLET (FP) PO SCH (09:07)
[2018-09-20] MEDS: ASPIRIN 81 MG CHEWABLE TABLETS PO SCH (09:07)
[2018-09-20] MEDS: MAGNESIUM CL 64 MG TABLET.SA PO SCH (09:07)
[2018-09-20] MEDS ORDERED: traMADol HCL 50 MG TABLET PO ONE (09:22)
--- NOTE | 2018-09-20 15:40 | PN ---
Progress Note, Physician Chief Complaint: Abnormal EKG History of Present Illness: Previous notes and events reviewed awake and alert NAD complain of R ankle pain described as sharp/throbbing - Current Medication List Current Medications: Active Medications Acetaminophen (Tylenol -) 650 mg PO Q6H PRN PRN Reason: PAIN LEVEL 1-5 Last Admin: 09/20/18 02:08 Dose: 650 mg Aspirin (Asa -) 81 mg PO DAILY [facility] Last Admin: 09/20/18 09:07 Dose: 81 mg Atorvastatin Calcium (Lipitor -) 20 mg PO [facility] Last Admin: 09/19/18 21:01 Dose: 20 mg Enalapril Maleate (Vasotec -) 5 mg PO DAILY [facility] Last Admin: 09/20/18 09:07 Dose: 5 mg Insulin Aspart (Novolog Vial Sliding Scale -) 1 vial SQ [facility]; Protocol Last Admin: 09/20/18 11:51 Dose: Not Given Magnesium Chloride (Slow-Mag -) 64 mg PO DAILY [facility] Last Admin: 09/20/18 09:07 Dose: 64 mg Meclizine HCl (Antivert -) 12.5 mg PO BID PRN PRN Reason: VERTIGO Last Admin: 09/20/18 09:07 Dose: 12.5 mg Metformin HCl (Glucophage -) 500 mg PO BID@0700,1630 [facility] Last Admin: 09/20/18 06:33 Dose: 500 mg Sitagliptin Phosphate (Januvia -) 100 mg PO DAILY@0700 [facility] Last Admin: 09/20/18 06:31 Dose: 100 mg Tamsulosin HCl (Flomax -) 0.4 mg PO [facility] Last Admin: 09/19/18 21:01 Dose: 0.4 mg - Objective Vital Signs: Vital Signs Temperature 98 F 09/20/18 14:15 Pulse Rate 86 09/20/18 14:15 Respiratory Rate 18 09/20/18 14:15 Blood Pressure 103/50 L 09/20/18 14:15 O2 Sat by Pulse Oximetry (%) 95 09/20/18 07:59 Constitutional: Yes: No Distress, Calm Eyes: Yes: Conjunctiva Clear HENT: Yes: Normocephalic Cardiovascular: Yes: Regular Rate and Rhythm Respiratory: Yes: Regular, CTA Bilaterally Gastrointestinal: Yes: Normal Bowel Sounds, Soft Musculoskeletal: Yes: WNL Extremities: Yes: WNL Edema: No Neurological: Yes: Alert, Oriented Psychiatric: Yes: Alert, Oriented Labs: CBC, BMP 09/20/18 05:15 09/20/18 05:15 INR, PTT INR 1.02 (0.83-1.09) 09/16/18 20:08 Problem List - Problems (1) Lumbar pain Assessment/Plan: -lumbar xray results show no acute pathology -tylenol prn for pain Code(s): M54.5 - LOW BACK PAIN (2) Abnormal EKG Assessment/Plan: -cardiology on board -tele monitoring Code(s): R94.31 - ABNORMAL ELECTROCARDIOGRAM [ECG] [EKG] (3) Diabetes Assessment/Plan: -BGM ACHS -continue with sitalgliptin, metformin, ISS -diabetic diet -endo on board Code(s): E11.9 - TYPE 2 DIABETES MELLITUS WITHOUT COMPLICATIONS Qualifiers: Diabetes mellitus type: type 2 (4) Fall Assessment/Plan: -fall precaution Code(s): W19.XXXA - UNSPECIFIED FALL, INITIAL ENCOUNTER (5) Right foot pain Assessment/Plan: -R foot/ankle xray ordered and show minimal swelling with some arthritic changes -continue with tylenol prn for pain Code(s): M79.671 - PAIN IN RIGHT FOOT
--- NOTE | 2018-09-20 20:54 | PN ---
Progress Note (short form) - Note Progress Note: has pain and difficulty walking Current Active Problems Abnormal EKG (Acute) Diabetes (Acute) Lightheaded (Acute) Lumbar pain (Acute) Right foot pain (Acute) Abnormal Lab Results 09/20/18 09/20/18 05:15 05:15 WBC 11.5 H MCV 78.0 L BUN 23 H Random Glucose 118 H Calcium 8.2 L Laboratory Results - last 24 hr 09/19/18 09/20/18 09/20/18 20:53 05:15 05:15 WBC 11.5 H RBC 5.54 Hgb 14.6 Hct 43.2 MCV 78.0 L MCH 26.3 MCHC 33.8 RDW 13.6 Plt Count 189 MPV 9.1 Sodium 136 Potassium 4.4 Chloride 104 Carbon Dioxide 25 Anion Gap 8 BUN 23 H Creatinine 1.0 Creat Clearance w eGFR > 60 POC Glucometer 118 Random Glucose 118 H Calcium 8.2 L Total Bilirubin 0.4 AST 17 ALT 43 Alkaline Phosphatase 76 Total Protein 7.2 Albumin 3.5 09/20/18 09/20/18 09/20/18 06:00 11:49 16:40 WBC RBC Hgb Hct MCV MCH MCHC RDW Plt Count MPV Sodium Potassium Chloride Carbon Dioxide Anion Gap BUN Creatinine Creat Clearance w eGFR POC Glucometer 131 95 105 Random Glucose Calcium Total Bilirubin AST ALT Alkaline Phosphatase Total Protein Albumin plan : orthopedic consult rt ankle pain sp fall bgm with coverage janumet 100/1000mg daily Problem List - Problems (1) Abnormal EKG Code(s): R94.31 - ABNORMAL ELECTROCARDIOGRAM [ECG] [EKG] (2) Diabetes Code(s): E11.9 - TYPE 2 DIABETES MELLITUS WITHOUT COMPLICATIONS Qualifiers: Diabetes mellitus type: type 2 (3) Lightheaded Code(s): R42 - DIZZINESS AND GIDDINESS (4) Fall Code(s): W19.XXXA - UNSPECIFIED FALL, INITIAL ENCOUNTER (5) Knee pain Code(s): M25.569 - PAIN IN UNSPECIFIED KNEE
[2018-09-20] MEDS: TAMSULOSIN HCL 0.4 MG CAP PO SCH (21:23)
[2018-09-20] MEDS: ATORVASTATIN CA 20 MG TABLET (FP) PO SCH (21:23)
[2018-09-21] MEDS: ACETAMINOPHEN 325 MG TABLET (FP) PO PRN ×3 (02:28→12:33)
[2018-09-21] MEDS: sitaGLIPtin PHOSPHATE 100 MG TABLET (FP) PO SCH (06:40)
[2018-09-21] MEDS: INSULIN SLIDING SCALE (NOVOLOG) 1 VIAL SQ SCH ×2 (06:40→12:22)
[2018-09-21] MEDS: metFORMIN HCL 500 MG TABLET (FP) PO SCH (06:40)
[2018-09-21 07:32] LABS: HEMATOCRIT 41.9 % (35.4-49); MCHC 33.4 g/dl (32.0-35.9); MEAN CELL VOLUME 77.7 fl (80-96); MEAN PLT VOLUME 8.8 fl (7.5-11.1); PLATELET COUNT 213 K/MM3 (134-434); RBC 5.39 M/mm3 (4.00-5.60); RDW 13.8 % (11.9-15.9); WHITE BLOOD COUNT 13.1 K/mm3 (4.0-10.0)
[2018-09-21 08:38] LABS: ALBUMIN 3.7 g/dl (3.4-5.0); ALK PHOS 88 U/L (45-117); ANION GAP 6 MMOL/L (8-16); BILIRUBIN,TOTAL 0.8 mg/dL (0.2-1); BLOOD UREA NITROGEN 23 mg/dL (7-18); CALCIUM 8.8 mg/dL (8.5-10.1); CHLORIDE 102 mmol/L (98-107); CO2 29 mmol/L (21-32); CREATININE 1.1 mg/dL (0.55-1.3); GLUCOSE,RANDOM 116 mg/dL (74-106); POTASSIUM 4.7 mmol/L (3.5-5.1); SGOT/AST 16 U/L (15-37); SGPT/ALT 36 U/L (13-61); SODIUM 136 mmol/L (136-145); TOT PROT 7.3 g/dl (6.4-8.2)
[2018-09-21 09:32] VITALS: BP 128/68; PULSE 98; TEMP 98.6
[2018-09-21] MEDS ORDERED: PT OWN MED DRAWER 7, Y5N ONE (09:38)
[2018-09-21] MEDS: MAGNESIUM CL 64 MG TABLET.SA PO SCH (09:40)
[2018-09-21] MEDS: ASPIRIN 81 MG CHEWABLE TABLETS PO SCH (09:41)
[2018-09-21] MEDS: ENALAPRIL MALEATE 5 MG TABLET (FP) PO SCH (09:41)
--- NOTE | 2018-09-21 12:37 | PN ---
Progress Note (short form) - Note Progress Note: Pt seen and examined. He is a 57 year old male pt 2 days s/p fall on the ice, twisted his right ankle during the fall. He states that now the right foot is better, he still has mild to moderate pain around the right ankle. PE Right foot is normal: no swelling, no erythema, NVI, good ROM throughout, non tender. Right ankle is tender to palpation over both the medial and the lateral ligaments. NVI. Good right ankle PF, DF, inversion, eversion Otherwise the right ankle is a lot better, as per the pt, less swelling, less pain, better ROM. Xrays Of the right foot and ankle show only OA, no acute pathology, no fractures Imp 2 days s/p fall with a mild right ankle sprain Rec Ankle aircast brace for support, WBAT, P.T. if needed Ice and elevation Can DC home today as per ortho, f/u as out pt in 1 week
--- NOTE | 2018-09-21 13:09 | DS ---
Physical Examination Vital Signs: Vital Signs Temperature 98.6 F 09/21/18 09:00 Pulse Rate 98 H 09/21/18 09:00 Respiratory Rate 18 09/21/18 09:00 Blood Pressure 128/68 09/21/18 09:00 O2 Sat by Pulse Oximetry (%) 98 09/20/18 21:00 Constitutional: Yes: Calm Neck: Yes: Trachea Midline Cardiovascular: Yes: Regular Rate and Rhythm, S1, S2 Respiratory: Yes: CTA Bilaterally Gastrointestinal: Yes: Normal Bowel Sounds, Soft Edema: No Labs: CBC, BMP 09/21/18 05:25 09/21/18 05:25 Discharge Summary Reason For Visit: LIGHTHEADEDNESS,ABNORMAL ELECTROCARDIOGRAPHY Current Active Problems Abnormal EKG (Acute) Diabetes (Acute) Lightheaded (Acute) Lumbar pain (Acute) Right foot pain (Acute) Other Procedures: ct head no infarct. ct neck no fracture. foot and ankle xray minimal swelling arthritic changes. echo normal, nonspecific t wave changes Hospital Course: CHIEF COMPLAINT: sent from PCP office for abnormal EKG PCP:Dr. Patrick HISTORY OF PRESENT ILLNESS: This is a 57 year old male with history of diabetes mellitus(on med), gout,and BPH who sustained a slip on ice yesterday. He went to [facility] for evaluation. CT scan of head was unremarkable. He required for 4 polina to his head. He went to his PCP today and found to have an abnormal EKG(office EKG unavailable) . He was referred to go to the ER. He denied any active anginal symptoms and reports feeling at his baseline. He denied shortness of breath, orthopnea, dizziness, palpitations, headache or syncopy.He was admitted to observation for further cardiac evaluation. EKG reviewed a normal sinus rhythm, T wave inversions in v5,v6, first troponin is normal. Condition: Fair - Instructions Diet, Activity, Other Instructions: ankle aircast brace for support Referrals: Talon Jerez MD [Staff Physician] - Disposition: HOME - Home Medications Comprehensive Discharge Medication List: Ambulatory Orders Linagliptin/Metformin HCl [Jentadueto 2.5 mg-500 mg Tab] 1 each PO BID 01/16/15 Simvastatin 10 mg PO HS 01/16/15 Enalapril Maleate [Vasotec -] 5 mg PO DAILY tablet 01/17/15 Tamsulosin HCl [Flomax -] 0.4 mg PO HS cap.er.24h 01/17/15
--- NOTE | 2018-09-21 13:39 | PN ---
Progress Note (short form) - Note Progress Note: NEUROLOGY PROGRESS NOTE : Pending discharge home today. Ortho consult appreciated. Nephew at bedside aiding in translation. Still reporting headache with associated P/P/N/kinesiophobia, taking tylenol 2 tabs every 6 hours, which "lessens headache" Still reports new headache is "worse than my rare headaches when I forgot to eat " Neck pain improved - CT scan done noted with multilevel DJD Reports limited ambulation due to LBP without radiation- Lumbar xray done noted with DJD B12, TSH, Iron studies normal. HOPE: restricted ROM of neck, Staple line over R occipital region, Swelling and ecchymosis to R lateral forefoot NEURO EXAM: Mentation: Normal CN II-XII: EOMI intact without nystagmus. Motor: No drift. Strength normal. Reflexes normal. Toes downgoing. Coordination: No FTN dystaxia. Sensation: Reduced vibration in feet. Gait: Deferred Impression: Head Injury with LOC Concussion ? Post-traumatic exacerbation of migraine headaches Cervical spondylosis Lumbar stenosis Plan: Advised patient may require preventive migraine treatment to avoid chronic daily headache syndrome Continue out-patient PT Neuro F/U as outpatient for further management of concussion, LBP, and study for possible diabetic neuropathy vs. radiculopathy Thank you very much. Lakhwinder Eden MD
== END 2018-09-21 14:46 | disposition home or self-care (01) ==
LOC: JER 19:43 → JERBED 21:52 → J4W 09-17 18:13
PROVIDERS: ADMIT Internal Medicine; ATTEND Family Medicine
PROC: 2W3QX1Z Immobilization of Right Lower Leg using Splint (ICD-10-PCS; principal; 2018-09-16)
DX: R94.31 Abnormal electrocardiogram [ECG] [EKG] (principal); R42 Dizziness and giddiness; S06.0X1D Concussion with loss of consciousness of 30 minutes or less, subsequent encounter; W00.0XXD Fall on same level due to ice and snow, subsequent encounter; E11.9 Type 2 diabetes mellitus without complications; N40.0 Benign prostatic hyperplasia without lower urinary tract symptoms; M10.9 Gout, unspecified; E78.5 Hyperlipidemia, unspecified; D72.829 Elevated white blood cell count, unspecified; Z79.84 Long term (current) use of oral hypoglycemic drugs; M25.569 Pain in unspecified knee; M54.5 Low back pain; M79.671 Pain in right foot; S93.401A Sprain of unspecified ligament of right ankle, initial encounter
CPT/HCPCS: 36415; 70450-TC; 71046-TC-FY; 72100-TC-FY; 72125-TC; 73610-TC-RT-FY; 73630-TC-RT-FY; 80048; 80053; 80061; 81003; 81015; 82550; 82553; 82607; 82962; 83036; 83540; 83550; 83721; 83735; 84443; 84484; 85025; 85027; 85610; 93005; 93010; 93306-TC; 99285-25; G0378

== ENCOUNTER 2021-05-26 13:32 | Emergency (ER) | payer OTHER ==
[2021-05-26 14:24] VITALS: BP 136/81; PULSE 89; TEMP 98.2; BMI 32.2
[2021-05-26] MEDS ORDERED: METHOCARBAMOL 500 MG TABLET PO ONE (15:10)
[2021-05-26] MEDS ORDERED: ACETAMINOPHEN 500 MG TABLET (FP) PO ONE (15:10)
[2021-05-26] MEDS ORDERED: METHOCARBAMOL 500 MG TABLET ONE (15:42)
[2021-05-26] MEDS ORDERED: ACETAMINOPHEN 500 MG TABLET (FP) ONE (15:42)
[2021-05-26 16:14] LABS: EPI CELLS 1 /uL (0-25.1); HYALINE CASTS 0 /uL (0-3.1); PH,URINE 6.5 (5.0-8.0); URINE APPEARANCE CLEAR; URINE BACTERIA 2 /uL (0-1359); URINE BILIRUBIN NEGATIVE (NEGATIVE); URINE COLOR YELLOW; URINE GLUCOSE (UA) NEGATIVE (NEGATIVE); URINE KETONE NEGATIVE (NEGATIVE); URINE LEUK ESTERASE NEGATIVE (NEGATIVE); URINE NITRITE NEGATIVE (NEGATIVE); URINE PROTEIN NEGATIVE (NEGATIVE); URINE RBC 49 /uL (0-23.9); URINE UROBILINOGEN 0.2 mg/dL (0.2-1.0); URINE WBC 4 /uL (0-25.8)
[2021-05-26] MEDS ORDERED: oxyCODONE HCL 5 MG TABLET PO ONE (16:59)
[2021-05-26] MEDS ORDERED: oxyCODONE HCL 5 MG TABLET ONE (17:03)
== END 2021-05-26 17:17 | disposition home or self-care (01) ==
LOC: JER 13:32
DX: M54.50 Low back pain, unspecified (principal)
CPT/HCPCS: 72100-TC-FY; 81003; 87086; 99284-25

== ENCOUNTER 2021-07-14 11:38 | Emergency (ER) | payer OTHER ==
[2021-07-14 11:49] VITALS: BP 135/73; TEMP 97.9; BMI 27.4
[2021-07-14] MEDS ORDERED: predniSONE 20 MG TABLET (UD) PO ONE (13:12)
[2021-07-14] MEDS ORDERED: KETOROLAC TROMETHAMINE 30 MG/1 ML VIAL IM ONE (13:12)
[2021-07-14] MEDS ORDERED: diphenhydrAMINE HCL 25 MG CAPSULE (FP) PO ONE ×2 (13:20→13:22)
[2021-07-14] MEDS ORDERED: predniSONE 20 MG TABLET (UD) ONE (13:23)
[2021-07-14] MEDS ORDERED: KETOROLAC TROMETHAMINE 30 MG/1 ML VIAL ONE (13:23)
[2021-07-14 14:11] VITALS: PULSE 93
== END 2021-07-14 14:12 | disposition home or self-care (01) ==
LOC: JERFT 11:38
PROC: 3E0233Z Introduction of Anti-inflammatory into Muscle, Percutaneous Approach (ICD-10-PCS; principal; 2021-07-14)
DX: M10.9 Gout, unspecified (principal)
CPT/HCPCS: 99284-25

== ENCOUNTER 2021-12-05 09:43 | Emergency (ER) | payer OTHER ==
[2021-12-05 09:48] VITALS: BP 131/85; PULSE 99; TEMP 98.3; BMI 25.7
[2021-12-05] MEDS ORDERED: ACETAMINOPHEN 500 MG TABLET (FP) PO ONE (10:40)
[2021-12-05] MEDS ORDERED: LIDOCAINE 5% TOPICAL PATCH TP ONE (10:40)
[2021-12-05] MEDS ORDERED: CYCLOBENZAPRINE HCL 10 MG TABLET (FP) PO ONE (10:43)
[2021-12-05] MEDS ORDERED: LIDOCAINE 5% TOPICAL PATCH ONE (11:24)
[2021-12-05] MEDS ORDERED: ACETAMINOPHEN 500 MG TABLET (FP) ONE (11:24)
[2021-12-05] MEDS ORDERED: CYCLOBENZAPRINE HCL 10 MG TABLET (FP) ONE (11:24)
[2021-12-05] MEDS ORDERED: DEXAMETHASONE SOD PHOSPHATE 10 MG/1 ML VIAL IM ONE (12:04)
[2021-12-05] MEDS ORDERED: DEXAMETHASONE SOD PHOSPHATE 10 MG/1 ML VIAL ONE (12:12)
[2021-12-05] MEDS ORDERED: LIDOCAINE PATCH REMOVAL MC ONE (22:00)
== END 2021-12-05 13:36 | disposition home or self-care (01) ==
LOC: JERFT 09:43
PROC: 3E023GC Introduction of Other Therapeutic Substance into Muscle, Percutaneous Approach (ICD-10-PCS; principal; 2021-12-05)
DX: M54.50 Low back pain, unspecified (principal); G89.29 Other chronic pain
CPT/HCPCS: 99284-25; J1100

== ENCOUNTER 2022-08-22 18:14 | Emergency (ER) | payer OTHER ==
[2022-08-22 18:22] VITALS: BP 143/87; PULSE 120; RESP 18; TEMP 97.9; BMI 27.5
[2022-08-22] MEDS ORDERED: LIDOCAINE 5% TOPICAL PATCH TP ONE (18:53)
[2022-08-22] MEDS ORDERED: CYCLOBENZAPRINE HCL 10 MG TABLET (FP) PO ONE ×2 (18:53→18:57)
[2022-08-22] MEDS ORDERED: ACETAMINOPHEN 500 MG TABLET (FP) PO ONE (18:53)
[2022-08-22] MEDS ORDERED: LIDOCAINE 5% TOPICAL PATCH ONE (18:56)
[2022-08-22] MEDS ORDERED: ACETAMINOPHEN 500 MG TABLET (FP) ONE (18:57)
[2022-08-22] MEDS ORDERED: CYCLOBENZAPRINE HCL 10 MG TABLET (FP) ONE (18:57)
[2022-08-22] MEDS ORDERED: LIDOCAINE PATCH REMOVAL MC SCH (22:00)
== END 2022-08-22 19:49 | disposition home or self-care (01) ==
LOC: JERFT 18:14
DX: M54.42 Lumbago with sciatica, left side (principal); G89.29 Other chronic pain
CPT/HCPCS: 99283-25

== ENCOUNTER 2023-05-18 12:22 | Inpatient (IN) | payer OTHER ==
[2023-05-18] MEDS ORDERED: ACETAMINOPHEN 1000 MG/100 ML BAG IVPB ONE (13:34)
[2023-05-18] MEDS ORDERED: SODIUM CHLORIDE 1,000 ML IV STA ×2 (13:34→19:30)
[2023-05-18] MEDS ORDERED: ACETAMINOPHEN INJECTION 100 ML IVPB ONE (13:42)
[2023-05-18 14:18] LABS: BASO % 0.4 % (0-2.0); EOS % 1.1 % (0-4.5); HEMATOCRIT 44.8 % (35.4-49); HEMOGLOBIN 14.8 GM/dL (11.7-16.9); MCH 25.6 pg (25.7-33.7); MCHC 33.1 g/dl (32.0-35.9); MEAN CELL VOLUME 77.3 fl (80-96); MEAN PLT VOLUME 8.3 fl (7.5-11.1); MONO % 5.9 % (3.8-10.2); NEUT % 73.6 % (42.8-82.8); PLATELET COUNT 351 10^3/uL (134-434); WHITE BLOOD COUNT 17.7 K/mm3 (4.0-10.0)
[2023-05-18 14:25] LABS: POTASSIUM 4.8 mmol/L (3.5-5.1)
[2023-05-18 14:27] LABS: CALCIUM 9.5 mg/dL (8.5-10.1)
[2023-05-18 14:28] LABS: ALBUMIN 3.8 g/dl (3.4-5.0)
[2023-05-18 14:31] LABS: ACTIVATED PTT 33.3 SECONDS (25.2-36.5); CREATININE 1.2 mg/dL (0.55-1.3); INR 1.09 (0.83-1.09); PROTHROMBIN TIME (PATIENT) 12.6 SEC (9.7-13.0)
[2023-05-18 14:32] LABS: BILIRUBIN,TOTAL 0.3 mg/dL (0.2-1)
[2023-05-18 14:33] LABS: TOT PROT 8.1 g/dl (6.4-8.2)
[2023-05-18 14:36] LABS: N-TERMINAL BNP 27.6 pg/ml (5-125)
[2023-05-18 17:27] LABS: EPI CELLS 2 /uL (0-25.1); HYALINE CASTS 0 /uL (0-3.1); URINE APPEARANCE CLEAR; URINE BACTERIA 0 /uL (0-1359); URINE BILIRUBIN NEGATIVE (NEGATIVE); URINE COLOR YELLOW; URINE GLUCOSE (UA) NEGATIVE (NEGATIVE); URINE KETONE NEGATIVE (NEGATIVE); URINE LEUK ESTERASE NEGATIVE (NEGATIVE); URINE NITRITE NEGATIVE (NEGATIVE); URINE PROTEIN NEGATIVE (NEGATIVE); URINE RBC 51 /uL (0-23.9); URINE UROBILINOGEN 0.2 mg/dL (0.2-1.0); URINE WBC 2 /uL (0-25.8)
[2023-05-18] MEDS ORDERED: VANCOMYCIN 1 GM PREMIX - 1 GM/200 ML BAG IVPB ONE (19:28)
[2023-05-18] MEDS ORDERED: DOCUSATE SODIUM 100 MG CAPSULE (FP) PO PRN (20:02)
[2023-05-18] MEDS ORDERED: ACETAMINOPHEN 1000 MG/100 ML BAG IVPB PRN (20:04)
[2023-05-18] MEDS: INSULIN SLIDING SCALE (NOVOLOG) 1 VIAL SQ SCH (21:46)
[2023-05-18] MEDS: SODIUM CHLORIDE 1,000 ML IV SCH (21:49)
[2023-05-18] MEDS ORDERED: GABAPENTIN 100 MG CAPSULE PO ONE (22:00)
[2023-05-18] MEDS: LATANOPROST 0.005% OPHTH SOLN 2.5ML BOTTLE OU SCH (22:02)
[2023-05-18] MEDS ORDERED: GABAPENTIN 100 MG CAPSULE ONE (22:03)
[2023-05-19] MEDS: GABAPENTIN 100 MG CAPSULE PO SCH ×3 (06:45→22:01)
[2023-05-19] MEDS ORDERED: GABAPENTIN 100 MG CAPSULE ONE (06:47)
[2023-05-19 07:11] LABS: BASO % 0.6 % (0-2.0); EOS % 1.4 % (0-4.5); HEMATOCRIT 37.4 % (35.4-49); HEMOGLOBIN 12.4 GM/dL (11.7-16.9); LYMPH % 19.5 % (8-40); MCH 25.8 pg (25.7-33.7); MEAN PLT VOLUME 7.9 fl (7.5-11.1); MONO % 6.9 % (3.8-10.2); NEUT % 71.6 % (42.8-82.8); PLATELET COUNT 267 10^3/uL (134-434); RDW 13.5 % (11.9-15.9); WHITE BLOOD COUNT 14.8 K/mm3 (4.0-10.0)
[2023-05-19 07:30] LABS: MAGNESIUM 1.4 mg/dL (1.8-2.4)
[2023-05-19 07:34] LABS: PHOSPHOROUS 2.7 mg/dL (2.5-4.9)
[2023-05-19] MEDS: INSULIN SLIDING SCALE (NOVOLOG) 1 VIAL SQ SCH ×3 (08:00→22:00)
[2023-05-19] MEDS ORDERED: LISINOPRIL 10 MG TABLET PO ONE (10:00)
[2023-05-19] MEDS: TAMSULOSIN HCL 0.4 MG CAP PO SCH (10:15)
[2023-05-19] MEDS: HYDROCHLOROTHIAZIDE 12.5 MG CAPSULE (FP) PO SCH (10:15)
[2023-05-19] MEDS: ALLOPURINOL 300 MG TABLET (FP) PO SCH (10:15)
[2023-05-19] MEDS ORDERED: LISINOPRIL 10 MG TABLET ONE (10:25)
[2023-05-19] MEDS ORDERED: TAMSULOSIN HCL 0.4 MG CAP ONE (10:25)
[2023-05-19] MEDS: SODIUM CHLORIDE 1,000 ML IV SCH ×2 (15:26→20:15)
[2023-05-19] MEDS: PIPERACILLIN/TAZOB 3.375 GM 3.375 GM in DEXTROSE 5%-WATER - 50 ML IVPB SCH (17:10)
[2023-05-19 17:46] VITALS: BMI 23.6
[2023-05-19] MEDS ORDERED: ACETAMINOPHEN 325 MG TABLET (FP) PO PRN (20:02)
[2023-05-19] MEDS: LATANOPROST 0.005% OPHTH SOLN 2.5ML BOTTLE OU SCH (22:01)
[2023-05-19] MEDS: ATORVASTATIN CA 20 MG TABLET (FP) PO SCH (22:01)
[2023-05-19] MEDS ORDERED: guaiFENesin/D-METHORPHAN TAB.ER.12H PO ONE (22:49)
[2023-05-20] MEDS: PIPERACILLIN/TAZOB 3.375 GM 3.375 GM in DEXTROSE 5%-WATER - 50 ML IVPB SCH ×3 (01:13→17:13)
[2023-05-20] MEDS: INSULIN SLIDING SCALE (NOVOLOG) 1 VIAL SQ SCH ×5 (06:35→22:10)
[2023-05-20] MEDS: GABAPENTIN 100 MG CAPSULE PO SCH ×3 (06:36→21:56)
[2023-05-20] MEDS: metFORMIN HCL 500 MG TABLET (FP) PO SCH ×2 (06:36→17:13)
[2023-05-20] MEDS: HYDROCHLOROTHIAZIDE 12.5 MG CAPSULE (FP) PO SCH (09:38)
[2023-05-20] MEDS: TAMSULOSIN HCL 0.4 MG CAP PO SCH (09:38)
[2023-05-20] MEDS: ALLOPURINOL 300 MG TABLET (FP) PO SCH (09:38)
[2023-05-20 13:50] LABS: BASO % 0.5 % (0-2.0); EOS % 2.7 % (0-4.5); HEMATOCRIT 36.8 % (35.4-49); HEMOGLOBIN 12.5 GM/dL (11.7-16.9); LYMPH % 22.8 % (8-40); MCH 26.1 pg (25.7-33.7); MCHC 33.9 g/dl (32.0-35.9); MEAN PLT VOLUME 8.1 fl (7.5-11.1); MONO % 7.6 % (3.8-10.2); NEUT % 66.4 % (42.8-82.8); PLATELET COUNT 290 10^3/uL (134-434); RBC 4.78 M/mm3 (4.00-5.60); RDW 13.8 % (11.9-15.9); WHITE BLOOD COUNT 12.8 K/mm3 (4.0-10.0)
[2023-05-20 14:17] LABS: POTASSIUM 4.6 mmol/L (3.5-5.1)
[2023-05-20 14:25] LABS: BLOOD UREA NITROGEN 22.1 mg/dL (7-18); CALCIUM 8.8 mg/dL (8.5-10.1)
[2023-05-20 14:29] LABS: BILIRUBIN,TOTAL 0.2 mg/dL (0.2-1); TOT PROT 6.4 g/dl (6.4-8.2)
[2023-05-20] MEDS ORDERED: MAGNESIUM SULF 50% (8.12 MEQ/2 ML-1 GM VIAL) IVPB ONE (18:15)
[2023-05-20] MEDS: SODIUM CHLORIDE 1,000 ML IV SCH (20:30)
[2023-05-20] MEDS: MELATONIN 5 MG TABLETS PO PRN (21:56)
[2023-05-20] MEDS: ATORVASTATIN CA 20 MG TABLET (FP) PO SCH (21:56)
[2023-05-20] MEDS: LATANOPROST 0.005% OPHTH SOLN 2.5ML BOTTLE OU SCH (22:10)
[2023-05-21] MEDS: PIPERACILLIN/TAZOB 3.375 GM 3.375 GM in DEXTROSE 5%-WATER - 50 ML IVPB SCH ×3 (02:06→17:10)
[2023-05-21] MEDS: GABAPENTIN 100 MG CAPSULE PO SCH ×3 (06:46→21:58)
[2023-05-21] MEDS: INSULIN SLIDING SCALE (NOVOLOG) 1 VIAL SQ SCH ×4 (06:46→21:58)
[2023-05-21] MEDS: metFORMIN HCL 500 MG TABLET (FP) PO SCH ×2 (06:46→16:56)
[2023-05-21 07:09] LABS: BASO % 0.7 % (0-2.0); HEMATOCRIT 40.8 % (35.4-49); HEMOGLOBIN 13.3 GM/dL (11.7-16.9); LYMPH % 28.4 % (8-40); MCH 25.8 pg (25.7-33.7); MCHC 32.7 g/dl (32.0-35.9); MEAN CELL VOLUME 78.9 fl (80-96); MEAN PLT VOLUME 8.2 fl (7.5-11.1); MONO % 6.5 % (3.8-10.2); NEUT % 61.4 % (42.8-82.8); PLATELET COUNT 310 10^3/uL (134-434); RBC 5.17 M/mm3 (4.00-5.60); RDW 13.6 % (11.9-15.9); WHITE BLOOD COUNT 10.8 K/mm3 (4.0-10.0)
[2023-05-21] MEDS: TAMSULOSIN HCL 0.4 MG CAP PO SCH (08:24)
[2023-05-21] MEDS: HYDROCHLOROTHIAZIDE 12.5 MG CAPSULE (FP) PO SCH (10:06)
[2023-05-21] MEDS: ALLOPURINOL 300 MG TABLET (FP) PO SCH (10:06)
[2023-05-21] MEDS: SODIUM CHLORIDE 1,000 ML IV SCH (12:09)
[2023-05-21] MEDS: ATORVASTATIN CA 20 MG TABLET (FP) PO SCH (21:58)
[2023-05-21] MEDS: LATANOPROST 0.005% OPHTH SOLN 2.5ML BOTTLE OU SCH (22:01)
[2023-05-22] MEDS: SODIUM CHLORIDE 1,000 ML IV SCH (01:32)
[2023-05-22] MEDS: PIPERACILLIN/TAZOB 3.375 GM 3.375 GM in DEXTROSE 5%-WATER - 50 ML IVPB SCH ×3 (01:33→17:20)
[2023-05-22] MEDS: metFORMIN HCL 500 MG TABLET (FP) PO SCH ×2 (06:12→16:19)
[2023-05-22] MEDS: GABAPENTIN 100 MG CAPSULE PO SCH ×3 (06:12→22:42)
[2023-05-22] MEDS: INSULIN SLIDING SCALE (NOVOLOG) 1 VIAL SQ SCH ×4 (06:13→23:10)
[2023-05-22] MEDS: TAMSULOSIN HCL 0.4 MG CAP PO SCH (09:10)
[2023-05-22] MEDS: HYDROCHLOROTHIAZIDE 12.5 MG CAPSULE (FP) PO SCH (10:09)
[2023-05-22] MEDS: ALLOPURINOL 300 MG TABLET (FP) PO SCH (10:10)
[2023-05-22] MEDS: FLUTICASONE/UMECLIDIN/VILANTER(200-62.5-25 TRELEGY ELLIPTA) INAHLER IH SCH (11:23)
[2023-05-22] MEDS: guaiFENesin/CODEINE 10 ML UNIT-DOSE CUPS PO PRN ×2 (11:36→22:43)
[2023-05-22 18:46] VITALS: RESP 18
[2023-05-22] MEDS: LATANOPROST 0.005% OPHTH SOLN 2.5ML BOTTLE OU SCH (22:43)
[2023-05-22] MEDS: MELATONIN 5 MG TABLETS PO PRN (22:43)
[2023-05-22] MEDS: ATORVASTATIN CA 20 MG TABLET (FP) PO SCH (22:44)
[2023-05-23] MEDS: PIPERACILLIN/TAZOB 3.375 GM 3.375 GM in DEXTROSE 5%-WATER - 50 ML IVPB SCH ×3 (03:33→10:18)
[2023-05-23] MEDS: GABAPENTIN 100 MG CAPSULE PO SCH (06:14)
[2023-05-23] MEDS: metFORMIN HCL 500 MG TABLET (FP) PO SCH (06:15)
[2023-05-23] MEDS: INSULIN SLIDING SCALE (NOVOLOG) 1 VIAL SQ SCH (06:15)
[2023-05-23] MEDS ORDERED: DOCUSATE SODIUM 100 MG CAPSULE (FP) PO PRN (08:16)
[2023-05-23] MEDS ORDERED: MELATONIN 5 MG TABLETS PO PRN (08:16)
[2023-05-23] MEDS ORDERED: ACETAMINOPHEN 325 MG TABLET (FP) PO PRN (08:16)
[2023-05-23] MEDS ORDERED: TAMSULOSIN HCL 0.4 MG CAP PO SCH (08:30)
[2023-05-23 08:52] VITALS: BP 119/90; PULSE 69; TEMP 97.4
[2023-05-23] MEDS: FLUTICASONE/UMECLIDIN/VILANTER(200-62.5-25 TRELEGY ELLIPTA) INAHLER IH SCH (09:56)
[2023-05-23] MEDS: guaiFENesin/CODEINE 10 ML UNIT-DOSE CUPS PO PRN ×2 (09:56→14:39)
[2023-05-23] MEDS ORDERED: ALLOPURINOL 300 MG TABLET (FP) PO SCH (10:00)
[2023-05-23] MEDS ORDERED: INSULIN SLIDING SCALE (NOVOLOG) 1 VIAL SQ SCH (11:00)
[2023-05-23] MEDS ORDERED: GABAPENTIN 100 MG CAPSULE PO SCH (14:00)
[2023-05-23] MEDS ORDERED: ATORVASTATIN CA 20 MG TABLET (FP) PO SCH (22:00)
[2023-05-23] MEDS ORDERED: LATANOPROST 0.005% OPHTH SOLN 2.5ML BOTTLE OU SCH (22:00)
== END 2023-05-23 14:45 | disposition home or self-care (01) | DRG 195 ==
LOC: JERFT 12:22 → JER 12:22 → JERBED 20:11 → J4W 05-19 14:15 → OBSVTOIN 05-20 09:29
PROVIDERS: ADMIT Internal Medicine; ATTEND Family Medicine
DX: J18.9 Pneumonia, unspecified organism (principal); I10 Essential (primary) hypertension; E78.5 Hyperlipidemia, unspecified; J47.9 Bronchiectasis, uncomplicated; E11.65 Type 2 diabetes mellitus with hyperglycemia; F17.210 Nicotine dependence, cigarettes, uncomplicated; E11.40 Type 2 diabetes mellitus with diabetic neuropathy, unspecified
CPT/HCPCS: 0241U-QW; 36415; 71046-TC-FY; 71275-TC; 80053; 81003; 82962; 83735; 83880; 84100; 84484; 85025; 85379; 85610; 85730; 87086; 93005; 93010; 99285-25; G0378; Q9967

== ENCOUNTER 2023-06-15 02:15 | Observation (INO) | payer OTHER ==
[2023-06-15] MEDS ORDERED: ACETAMINOPHEN 1000 MG/100 ML BAG IVPB ONE (02:48)
[2023-06-15] MEDS ORDERED: ONDANSETRON 4 MG/2 ML VIAL IVPUSH ONE (02:48)
[2023-06-15] MEDS ORDERED: SODIUM CHLORIDE 0.9% 500 ML INFUS.BAG IV ONE (02:48)
[2023-06-15] MEDS ORDERED: ONDANSETRON 4 MG/2 ML VIAL ONE (03:14)
[2023-06-15] MEDS ORDERED: ACETAMINOPHEN INJECTION 100 ML IVPB ONE (03:14)
[2023-06-15 03:18] LABS: HEMATOCRIT 36.4 % (35.4-49); HEMOGLOBIN 12.2 GM/dL (11.7-16.9); MCH 25.6 pg (25.7-33.7); MCHC 33.4 g/dl (32.0-35.9); MEAN CELL VOLUME 76.5 fl (80-96); MEAN PLT VOLUME 8.2 fl (7.5-11.1); PLATELET COUNT 167 10^3/uL (134-434); RBC 4.76 M/mm3 (4.00-5.60); RDW 14.5 % (11.9-15.9); WHITE BLOOD COUNT 13.9 K/mm3 (4.0-10.0)
[2023-06-15 03:39] LABS: EPI CELLS 20 /uL (0-25.1); HYALINE CASTS 0 /uL (0-3.1); PH,URINE 5.5 (5.0-8.0); URINE APPEARANCE TURBID; URINE BACTERIA 5518 /uL (0-1359); URINE BILIRUBIN NEGATIVE (NEGATIVE); URINE COLOR YELLOW; URINE GLUCOSE (UA) NEGATIVE (NEGATIVE); URINE KETONE NEGATIVE (NEGATIVE); URINE LEUK ESTERASE 3+ (NEGATIVE); URINE NITRITE NEGATIVE (NEGATIVE); URINE PROTEIN 2+ (NEGATIVE); URINE WBC 18379 /uL (0-25.8)
[2023-06-15 03:56] LABS: POTASSIUM 5.4 mmol/L (3.5-5.1)
[2023-06-15 03:58] LABS: BLOOD UREA NITROGEN 36.3 mg/dL (7-18); CALCIUM 8.3 mg/dL (8.5-10.1)
[2023-06-15] MEDS ORDERED: CEFTRIAXONE 1,000 MG in DEXTROSE 5%-WATER - 50 ML IVPB ONE (03:59)
[2023-06-15 04:03] LABS: BILIRUBIN,TOTAL 0.8 mg/dL (0.2-1); TOT PROT 6.6 g/dl (6.4-8.2)
[2023-06-15 04:04] LABS: ALBUMIN 2.7 g/dl (3.4-5.0)
[2023-06-15] MEDS ORDERED: CEFTRIAXONE 1 GM/50 ML BAG ONE (04:13)
[2023-06-15] MEDS ORDERED: DOCUSATE SODIUM 100 MG CAPSULE (FP) PO PRN (06:06)
[2023-06-15] MEDS ORDERED: CYCLOBENZAPRINE HCL 10 MG TABLET (FP) ONE (06:10)
[2023-06-15] MEDS ORDERED: GABAPENTIN 100 MG CAPSULE ONE (06:10)
[2023-06-15] MEDS ORDERED: SODIUM CHLORIDE 1,000 ML IV SCH (06:15)
[2023-06-15] MEDS: CYCLOBENZAPRINE HCL 10 MG TABLET (FP) PO SCH ×3 (06:35→22:06)
[2023-06-15] MEDS: GABAPENTIN 100 MG CAPSULE PO SCH ×3 (06:35→22:06)
[2023-06-15 06:39] LABS: MAGNESIUM 1.8 mg/dL (1.8-2.4)
[2023-06-15 06:43] LABS: PHOSPHOROUS 3.4 mg/dL (2.5-4.9)
[2023-06-15] MEDS: INSULIN SLIDING SCALE (NOVOLOG) 1 VIAL SQ SCH ×4 (07:41→22:06)
[2023-06-15] MEDS: TAMSULOSIN HCL 0.4 MG CAP PO SCH (08:58)
[2023-06-15] MEDS: FLUTICASONE/UMECLIDIN/VILANTER(200-62.5-25 TRELEGY ELLIPTA) INAHLER IH SCH (09:00)
[2023-06-15] MEDS: ALLOPURINOL 300 MG TABLET (FP) PO SCH (09:00)
[2023-06-15] MEDS ORDERED: ACETAMINOPHEN 1000 MG/100 ML BAG IVPB PRN (09:00)
[2023-06-15] MEDS ORDERED: ONDANSETRON 4 MG/2 ML VIAL IVPUSH PRN (09:30)
[2023-06-15 11:50] VITALS: BMI 24.3
[2023-06-15 14:09] LABS: URINE RBC 646.4 /uL (0-23.9)
[2023-06-15 16:06] LABS: BASO % 0.5 % (0-2.0); EOS % 0.9 % (0-4.5); HEMATOCRIT 34.1 % (35.4-49); HEMOGLOBIN 11.3 GM/dL (11.7-16.9); LYMPH % 8.6 % (8-40); MCH 25.1 pg (25.7-33.7); MEAN CELL VOLUME 76.2 fl (80-96); MEAN PLT VOLUME 7.9 fl (7.5-11.1); MONO % 7.9 % (3.8-10.2); NEUT % 82.1 % (42.8-82.8); PLATELET COUNT 154 10^3/uL (134-434); RBC 4.48 M/mm3 (4.00-5.60); RDW 14.7 % (11.9-15.9); WHITE BLOOD COUNT 12.4 K/mm3 (4.0-10.0)
[2023-06-15] MEDS: SODIUM CHLORIDE 1,000 ML IV SCH ×2 (16:14→20:17)
[2023-06-15 16:22] LABS: POTASSIUM 3.8 mmol/L (3.5-5.1)
[2023-06-15 16:23] LABS: CALCIUM 7.8 mg/dL (8.5-10.1)
[2023-06-15 16:24] LABS: BLOOD UREA NITROGEN 34.8 mg/dL (7-18)
[2023-06-15 16:27] LABS: CREATININE 1.8 mg/dL (0.55-1.3)
[2023-06-15] MEDS ORDERED: CEFTRIAXONE 1 GM in DEXTROSE 5%-WATER - 50 ML IVPB SCH (19:15)
[2023-06-15] MEDS ORDERED: CEFTRIAXONE 1 GM in DEXTROSE 5%-WATER - 50 ML IVPB ONE (20:15)
[2023-06-15] MEDS ORDERED: INSULIN (NOVOLOG) ASPART 100 UNITS/ML 10ML VIAL ONE (21:09)
[2023-06-15] MEDS: ATORVASTATIN CA 20 MG TABLET (FP) PO SCH (22:06)
[2023-06-15] MEDS: NORTRIPTYLINE HCL 10 MG CAPSULE PO SCH (23:52)
[2023-06-15] MEDS: LATANOPROST 0.005% OPHTH SOLN 2.5ML BOTTLE OU SCH (23:53)
[2023-06-16] MEDS: GABAPENTIN 100 MG CAPSULE PO SCH ×3 (06:20→21:42)
[2023-06-16] MEDS: CYCLOBENZAPRINE HCL 10 MG TABLET (FP) PO SCH ×3 (06:20→21:42)
[2023-06-16] MEDS: SODIUM CHLORIDE 1,000 ML IV SCH ×2 (07:03→16:41)
[2023-06-16] MEDS: INSULIN SLIDING SCALE (NOVOLOG) 1 VIAL SQ SCH ×4 (07:58→21:43)
[2023-06-16 09:20] VITALS: RESP 18
[2023-06-16 09:20] LABS: BASO % 0.2 % (0-2.0); EOS % 0.7 % (0-4.5); HEMATOCRIT 34.3 % (35.4-49); HEMOGLOBIN 10.9 GM/dL (11.7-16.9); MCH 24.7 pg (25.7-33.7); MCHC 31.8 g/dl (32.0-35.9); MEAN CELL VOLUME 77.7 fl (80-96); MEAN PLT VOLUME 8.2 fl (7.5-11.1); MONO % 10.7 % (3.8-10.2); NEUT % 74.4 % (42.8-82.8); PLATELET COUNT 162 10^3/uL (134-434); RBC 4.42 M/mm3 (4.00-5.60); RDW 14.5 % (11.9-15.9)
[2023-06-16] MEDS: TAMSULOSIN HCL 0.4 MG CAP PO SCH (09:58)
[2023-06-16] MEDS: ALLOPURINOL 300 MG TABLET (FP) PO SCH (09:58)
[2023-06-16] MEDS: CEFTRIAXONE 1 GM in DEXTROSE 5%-WATER - 50 ML IVPB SCH (09:58)
[2023-06-16] MEDS: FLUTICASONE/UMECLIDIN/VILANTER(200-62.5-25 TRELEGY ELLIPTA) INAHLER IH SCH ×2 (11:33→12:13)
[2023-06-16] MEDS ORDERED: INSULIN (NOVOLOG) ASPART 100 UNITS/ML 10ML VIAL ONE ×3 (11:41→21:35)
[2023-06-16] MEDS: ACETAMINOPHEN 325 MG TABLET (FP) PO PRN ×2 (14:12→20:26)
[2023-06-16] MEDS: NORTRIPTYLINE HCL 10 MG CAPSULE PO SCH (21:42)
[2023-06-16] MEDS: ATORVASTATIN CA 20 MG TABLET (FP) PO SCH (21:42)
[2023-06-16] MEDS: LATANOPROST 0.005% OPHTH SOLN 2.5ML BOTTLE OU SCH (21:43)
[2023-06-17] MEDS: SODIUM CHLORIDE 1,000 ML IV SCH (03:28)
[2023-06-17] MEDS: INSULIN SLIDING SCALE (NOVOLOG) 1 VIAL SQ SCH ×3 (06:21→11:53)
[2023-06-17] MEDS: GABAPENTIN 100 MG CAPSULE PO SCH (06:22)
[2023-06-17] MEDS: CYCLOBENZAPRINE HCL 10 MG TABLET (FP) PO SCH (06:22)
[2023-06-17 08:31] LABS: BASO % 0.4 % (0-2.0); EOS % 1.4 % (0-4.5); HEMATOCRIT 33.8 % (35.4-49); HEMOGLOBIN 10.9 GM/dL (11.7-16.9); LYMPH % 10.6 % (8-40); MCH 25.1 pg (25.7-33.7); MCHC 32.3 g/dl (32.0-35.9); MEAN CELL VOLUME 77.6 fl (80-96); MEAN PLT VOLUME 8.2 fl (7.5-11.1); MONO % 7.7 % (3.8-10.2); NEUT % 79.9 % (42.8-82.8); PLATELET COUNT 184 10^3/uL (134-434); RBC 4.35 M/mm3 (4.00-5.60); RDW 14.5 % (11.9-15.9); WHITE BLOOD COUNT 13.1 K/mm3 (4.0-10.0)
[2023-06-17 08:40] LABS: POTASSIUM 4.5 mmol/L (3.5-5.1)
[2023-06-17 08:44] LABS: ALBUMIN 2.3 g/dl (3.4-5.0)
[2023-06-17 08:45] LABS: BLOOD UREA NITROGEN 23.7 mg/dL (7-18)
[2023-06-17 08:47] LABS: CREATININE 1.3 mg/dL (0.55-1.3)
[2023-06-17 08:49] LABS: BILIRUBIN,TOTAL 0.3 mg/dL (0.2-1); TOT PROT 5.5 g/dl (6.4-8.2)
[2023-06-17 08:56] VITALS: BP 124/64; PULSE 98; TEMP 98
[2023-06-17] MEDS: ALLOPURINOL 300 MG TABLET (FP) PO SCH (10:00)
[2023-06-17] MEDS: TAMSULOSIN HCL 0.4 MG CAP PO SCH (10:00)
[2023-06-17] MEDS: FLUTICASONE/UMECLIDIN/VILANTER(200-62.5-25 TRELEGY ELLIPTA) INAHLER IH SCH (10:01)
[2023-06-17] MEDS: CEFTRIAXONE 1 GM in DEXTROSE 5%-WATER - 50 ML IVPB SCH (10:01)
== END 2023-06-17 12:27 | disposition home or self-care (01) ==
LOC: JER 02:15 → JERBED 04:18 → J7W 10:03
PROVIDERS: ADMIT Internal Medicine; ATTEND Family Medicine
PROC: 3E03329 Introduction of Other Anti-infective into Peripheral Vein, Percutaneous Approach (ICD-10-PCS; principal; 2023-06-15)
PROC: 3E033NZ Introduction of Analgesics, Hypnotics, Sedatives into Peripheral Vein, Percutaneous Approach (ICD-10-PCS; 2023-06-15)
PROC: 3E013VG Introduction of Insulin into Subcutaneous Tissue, Percutaneous Approach (ICD-10-PCS; 2023-06-15)
PROC: 3E033GC Introduction of Other Therapeutic Substance into Peripheral Vein, Percutaneous Approach (ICD-10-PCS; 2023-06-15)
PROC: 3E0337Z Introduction of Electrolytic and Water Balance Substance into Peripheral Vein, Percutaneous Approach (ICD-10-PCS; 2023-06-15)
DX: N17.9 Acute kidney failure, unspecified (principal); B96.89 Other specified bacterial agents as the cause of diseases classified elsewhere; I10 Essential (primary) hypertension; E11.9 Type 2 diabetes mellitus without complications; E78.5 Hyperlipidemia, unspecified; M10.9 Gout, unspecified; N40.0 Benign prostatic hyperplasia without lower urinary tract symptoms; G89.29 Other chronic pain; M54.9 Dorsalgia, unspecified; Z87.891 Personal history of nicotine dependence; Z88.8 Allergy status to other drugs, medicaments and biological substances
CPT/HCPCS: 36415; 71045-TC-FY; 76775-TC; 80048; 80053; 81003; 82962; 83735; 84100; 84484; 85025; 87086; 87186; 93005; 93010; 96361; 96365; 96366; 96367; 96372; 96375; 96376; 99285-25; G0378